=== PATIENT | male | born 1930 | race Caucasian/White ===

== ENCOUNTER → 2016-10-24 | Outpatient (CLI) | payer OTHER, MEDICARE ==
[~2016-10-24] MED LIST: ASPI81TA28 PO; CIPR-255 PO; METO100T7 PO; RIVA1.5T PO; ROSU40TA PO; TAMS0.4C38 PO; VSC/5 PO
[2016-10-24 12:24] LABS: HEMATOCRIT 41.6 % (42-52); MEAN CELL VOLUME 91.8 fL (80-100); MEAN CORPUSCULAR HEMOGLOBIN 30.2 pg (25-34); MEAN CORPUSCULAR HGB CONC 32.9 g/dl (32-36); MEAN PLATELET VOLUME 9.8 fL (7.4-10.4); PLATELET COUNT 176 K/uL (130-400); RED BLOOD COUNT 4.53 M/uL (4.7-6.1); WHITE BLOOD COUNT 7.16 K/uL (4.8-10.8)
[2016-10-24 13:03] LABS: BLOOD UREA NITROGEN 22 mg/dl (7-18); CALCIUM 8.6 mg/dl (8.5-10.1); CARBON DIOXIDE 31 mmol/L (21-32); CHLORIDE 109 mmol/L (98-107); GLUCOSE 81 mg/dl (70-99); POTASSIUM 4.3 mmol/L (3.5-5.1); SODIUM 143 mmol/L (136-145)
== END | disposition home or self-care (01) ==
LOC: C.LAB1850 09:52
PROVIDERS: ATTEND Internal Medicine
DX: I48.91 Unspecified atrial fibrillation (principal); E03.9 Hypothyroidism, unspecified

== ENCOUNTER 2016-11-14 08:35 | Day surgery (SDC) | payer OTHER, MEDICARE ==
[2016-11-07 12:02] VITALS: Ht 177.8 cm; Wt 76.1 kg
--- NOTE | 2016-11-07 12:50 | PAT Medication Instructions ---
Service Date Nov 07, 2016. Current Home Medication List Aspirin (Aspirin Ec), 81 MG PO QPM Metoprolol Succinate (Toprol Xl), 100 MG PO HS Rivaroxaban (Xarelto), 15 MG PO DAILYBD Rosuvastatin Calcium (Crestor), 40 MG PO HS Solifenacin (Vesicare), 5 MG PO HS Tamsulosin Hcl (Flomax), 0.4 MG PO HS Medication Instructions For Your Scheduled Surgery - Hold the following medications 5 days prior to surgery per surgeon's instructions: Aspirin (Aspirin Ec), 81 MG PO QPM - Hold the following medications 2 days prior to surgery per surgeon's instructions: Rivaroxaban (Xarelto), 15 MG PO DAILYBD - Take the following medications as scheduled the night before surgery: Metoprolol Succinate (Toprol Xl), 100 MG PO HS Rosuvastatin Calcium (Crestor), 40 MG PO HS Solifenacin (Vesicare), 5 MG PO HS Tamsulosin Hcl (Flomax), 0.4 MG PO HS Nothing to eat or drink after midnight the night before the surgery If you have any questions please call us at [phone] or [phone] or [phone]
[2016-11-07 13:46] LABS: BASO % 0.3 %; BASO ABS # 0.02 K/uL (0-0.2); COMPLETE YES; EOS % 5.8 %; HEMATOCRIT 39.7 % (42-52); IG% 0.1 %; LYMPH % 25.5 %; LYMPH ABS # 2.01 K/uL (1.2-3.4); MEAN CELL VOLUME 89.8 fL (80-100); MEAN CORPUSCULAR HEMOGLOBIN 29.9 pg (25-34); MEAN CORPUSCULAR HGB CONC 33.2 g/dl (32-36); MEAN PLATELET VOLUME 9.3 fL (7.4-10.4); MONO % 9.3 %; PLATELET COUNT 152 K/uL (130-400); RED BLOOD COUNT 4.42 M/uL (4.7-6.1); WHITE BLOOD COUNT 7.87 K/uL (4.8-10.8)
[2016-11-07 14:17] LABS: URINE APPEARANCE CLEAR (CLEAR); URINE BILIRUBIN NEG (NEG); URINE COLOR YELLOW; URINE NITRITE NEG (NEG); URINE SPECIFIC GRAVITY 1.013 (1.000-1.030); UROBILINOGEN NEG (NEG)
[2016-11-07 14:24] LABS: MANUAL MICROSCOPIC REQUIRED? NO; REVIEW REQ? NO
[2016-11-07 14:27] LABS: BUN/CREATININE RATIO 14.6 (10-20); CALCIUM 8.5 mg/dl (8.5-10.1); CREATININE 1.2 mg/dl (0.60-1.40); POTASSIUM 4.4 mmol/L (3.5-5.1)
[~2016-11-14] VITALS: Ht 177.8 cm; Wt 76.1 kg
[~2016-11-14 08:35] MED LIST changes: -CIPR-255 PO; +CIPROFLOXACIN / D5W 400 MG IV SCH; +LACTATED RINGER'S 1000ML 1,000 ML IV SCH
[2016-11-14] MEDS ORDERED: LIDOCAINE HCL 2% 2 ML VIAL (20MG/ML) ONE (08:40)
[2016-11-14] MEDS ORDERED: PROPOFOL IV EMULSION 10 MG/ML 20 ML VIAL IV ONE (08:40)
[2016-11-14] MEDS ORDERED: ONDANSETRON INJ 2 MG/ML 2 ML VIAL ONE (08:40)
[2016-11-14] MEDS ORDERED: MIDAZOLAM HCL 1 MG/ML 2ML VIAL ONE (08:41)
[2016-11-14] MEDS ORDERED: FENTANYL CITRATE INJ 50 MCG/1 ML 2 ML VIAL ONE (08:41)
--- NOTE | 2016-11-14 08:54 | History & Physical Bridge Note ---
H&P Re-Evaluation Bridge Note: I have examined the patient, reviewed the History & Physical and in the interval since the performance of the History & Physical I have noted the following changes of clinical significance: No changes noted
[2016-11-14] MEDS ORDERED: CIPR-255 PO (08:56)
--- NOTE | 2016-11-14 08:56 | Discharge Instructions ---
Discharge Instructions Date of Service Nov 14, 2016. Admission Reason for Admission: Benign Prostatic Hypertrophy Discharge Discharge Diagnosis / Problem: BPH Discharge Goals Goal(s): Decrease discomfort, Improve function, Increase independence, Improve disease control, Prevent Disease Progression Activity Recommendations Activity Limitations: resume your previous activity Lifting Limitations: none Exercise/Sports Limitations: none May Resume Sexual Activity: when tolerated Shower/Bathe: no limitations Driving or Machine Use: resume 1 day after discharge . Instructions / Follow-Up Instructions / Follow-Up You may have some burning with urination as well as urinary frequency, urgency, and blood for the next 1-4 weeks. This is a normal part of recovery from this procedure. If your burning is problematic, please use AZO (available over the counter at most pharmacies) Discharge Diet Recommended Diet: Regular Diet Procedures Procedures Performed: cystoscopy; urolift Pending Studies Studies pending at discharge: no Medical Emergencies . Who to Call and When: Medical Emergencies: If at any time you feel your situation is an emergency, please call 911 immediately. . Non-Emergent Contact Non-Emergency issues call your: Urologist Call Non-Emergent contact if: you have a fever, temperature is above 101.5, your pain is not controlled, your pain is worsening . . "Provider Documentation" section prepared by Jj Stahl. . VTE Core Measure Inpt VTE Proph given/why not?: Treatment not indicated
[2016-11-14 09:02] VITALS: BP 156/93; PULSE 73; TEMP 36.5; O2SAT 100
[2016-11-14] MEDS ORDERED: EpHEDrine SULFATE INJ 50 MG/ML AMP IV PRN (09:15)
[2016-11-14] MEDS ORDERED: FENTANYL CITRATE INJ 50 MCG/1 ML 2 ML VIAL IV PRN (09:15)
[2016-11-14] MEDS ORDERED: ONDANSETRON INJ 2 MG/ML 2 ML VIAL IV PRN (09:15)
[2016-11-14] MEDS ORDERED: ATROPINE SULFATE 0.1 MG/ML 5ML SYR IV PRN (09:15)
--- NOTE | 2016-11-14 09:47 | [facility] Post Operative Brief Note ---
Immediate Operative Summary Operative Date Nov 14, 2016. Pre-Operative Diagnosis Benign Hyperstatic Hyperplasia Post-Operative Diagnosis Benign Hyperstatic Hyperplasia Procedure(s) Performed cystoscopy with urolift Surgeon Dr. Nupur Teixeira Brooch And Bracelet Maker Surgeon(s) none Estimated Blood Loss 0mL Findings Lateral lobe hypertrophy. Heavily trabeculated bladder. Specimens none per surgeon Drains none Anesthesia MAC Complication(s) None Disposition Recovery Room / PACU (stable)
[2016-11-14] MEDS ORDERED: ACETAMINOPHEN 325 MG TAB PO PRN (10:00)
[2016-11-14] MEDS ORDERED: HYDROCODONE/ACETAMOPHEN 5/325MG TAB PO PRN (10:00)
--- NOTE | 2016-11-14 10:12 | OPERATIVE REPORT ---
DATE OF OPERATION: 11/14/2016 PREOPERATIVE DIAGNOSIS: Benign prostatic hypertrophy. POSTOPERATIVE DIAGNOSIS: Benign prostatic hypertrophy. PROCEDURE PERFORMED: Cystoscopy and Urolift prostatic urethral lift. ANESTHESIA: Sedation. ESTIMATED BLOOD LOSS: 0. URINE OUTPUT: Not recorded. SPECIMENS: There were no specimens. DRAINS: There were no drains. COMPLICATIONS: There were no complications. DESCRIPTION OF THE PROCEDURE: Maximo Humphrey was identified in the preoperative holding area. Appropriate informed consents were reviewed and completed and the patient was transported to the operating suite. Upon arrival, he received appropriate preoperative antibiotics in the form of ciprofloxacin. Adequate general anesthesia was achieved and the patient was placed in dorsal lithotomy position where he was sterilely prepped and draped in standard fashion. I began the case by passing a cystoscope per urethra. Inspection revealed no evidence of stricture disease. His prostate was noted to have lateral lobe hypertrophy and the estimated at around 50-60 grams total tissue. Inspection of the bladder revealed a very heavily trabeculated bladder without mucosal disease. Following my inspection, I exchanged the visual obturator for the device. The first device was placed in the patient's left hand side approximately 2 cm from the bladder neck in the mid prostate. This was placed just above the midline in regard to anterior-posterior differentiation. Device was placed without incident. I placed a second device exact way across from it on the patient's right hand side in the same location. A third device was placed adjacent to the verumontanum on the left hand side in the same anterior- posterior line. A fourth device was placed in a mirror image position to this on the patient's right hand side, adjacent to the verumontanum. There was an excellent result with excellent opening of the prostatic urethra with the clear visualization of the bladder from the veru. There was no active bleeding. The patient was left with a semi-full bladder and taken to the PACU in stable condition. I attest to the content of the Intraoperative Record and any orders documented therein. Any exceptions are noted below. RAFAELD
--- NOTE | 2016-11-14 10:17 | Anesthesiology Progress Note ---
Anesthesia Post Op Note Date & Time Nov 14, 2016 at 10:18 Vital Signs Pain Intensity: 0 Vital Signs Past 12 Hours Date Time Temp Pulse Resp B/P (MAP) Pulse Ox O2 Delivery O2 Flow Rate FiO2 11/14/16 10:05 61 16 129/76 100 Mask 10 11/14/16 09:55 58 16 123/71 100 Mask 10 11/14/16 09:47 36.3 63 16 115/69 100 Mask 10 11/14/16 09:02 36.5 73 18 156/93 (114) 100 Room Air Notes Mental Status: alert / awake / arousable, participated in evaluation Pt Amnestic to Procedure: Yes Nausea / Vomiting: adequately controlled Pain: adequately controlled Airway Patency, RR, SpO2: stable & adequate BP & HR: stable & adequate Hydration State: stable & adequate Anesthetic Complications: no major complications apparent
[2016-11-14 10:20] VITALS: BP 127/81; PULSE 54; TEMP 36.4; O2SAT 96
[2016-11-14 10:50] VITALS: BP 137/77; PULSE 53; TEMP 36.2; O2SAT 97
== END 2016-11-14 10:55 | disposition home or self-care (01) ==
LOC: C.ACU 08:35
PROVIDERS: ATTEND Urology
DX: N40.1 Benign prostatic hyperplasia with lower urinary tract symptoms (principal); N13.8 Other obstructive and reflux uropathy; D09.0 Carcinoma in situ of bladder; I10 Essential (primary) hypertension; I48.91 Unspecified atrial fibrillation; I25.10 Atherosclerotic heart disease of native coronary artery without angina pectoris; E78.5 Hyperlipidemia, unspecified; E03.9 Hypothyroidism, unspecified; Z95.1 Presence of aortocoronary bypass graft; Z90.89 Acquired absence of other organs; Z90.49 Acquired absence of other specified parts of digestive tract; Z87.891 Personal history of nicotine dependence; Z87.438 Personal history of other diseases of male genital organs; Z79.82 Long term (current) use of aspirin; Z79.899 Other long term (current) drug therapy; Z68.25 Body mass index [BMI] 25.0-25.9, adult; Z82.49 Family history of ischemic heart disease and other diseases of the circulatory system; Z83.3 Family history of diabetes mellitus

== ENCOUNTER → 2017-03-15 | Outpatient (CLI) | payer OTHER, MEDICARE ==
[~2017-03-15] MED LIST changes: +CIPR-255 PO; -CIPROFLOXACIN / D5W 400 MG IV SCH; -LACTATED RINGER'S 1000ML 1,000 ML IV SCH
== END | disposition home or self-care (01) ==
LOC: C.LAB1850 08:59
PROVIDERS: ATTEND Nurse Practitioner Adult Health
DX: N39.0 Urinary tract infection, site not specified (principal)

== ENCOUNTER → 2017-06-07 | Outpatient (CLI) | payer OTHER, MEDICARE ==
[~2017-06-07] MED LIST changes: +CPR/500 PO; +LISI-461 PO; +PHEN95TA14 PO
== END | disposition home or self-care (01) ==
LOC: C.LAB 17:16
PROVIDERS: ATTEND Urology
DX: N39.0 Urinary tract infection, site not specified (principal); R35.0 Frequency of micturition; R35.1 Nocturia

== ENCOUNTER 2017-06-25 09:25 | Day surgery (SDC) | payer OTHER, MEDICARE ==
[2017-06-11 13:43] VITALS: BMI 23.0
--- NOTE | 2017-06-11 14:06 | PAT Medication Instructions ---
Service Date Jun 11, 2017. Current Home Medication List Aspirin (Aspirin Ec), 81 MG PO Q2D Metoprolol Succinate (Toprol Xl), 100 MG PO HS Rivaroxaban (Xarelto), 15 MG PO HS Rosuvastatin Calcium (Crestor), 40 MG PO HS Medication Instructions For Your Scheduled Surgery Aspirin (Aspirin Ec), 81 MG PO Q2D (okay to continue as directed per surgeon) - Check with surgeon and silk screen processor for instructions: Rivaroxaban (Xarelto), 15 MG PO HS - Take the following medications as scheduled the night before surgery: Metoprolol Succinate (Toprol Xl), 100 MG PO HS Rosuvastatin Calcium (Crestor), 40 MG PO HS If you have any questions please call us at [phone] or [phone] or [phone]
--- NOTE | 2017-06-11 14:32 | DIAGNOSTIC IMAGING REPORT ---
CHEST 2 VIEWS ROUTINE CLINICAL HISTORY: PAT preoperative evaluation COMPARISON STUDY: 04/06/2016 FINDINGS: Moderate chronic fibrotic change throughout both hemithoraces. Mild stable cardia megaly. Prior median sternotomy. Diaphragms smooth. IMPRESSION: Chronic fibrotic change. No acute process. The above report was generated using voice recognition software. It may contain grammatical, syntax or spelling errors. Electronically signed by: Dony Child M.D. 06/11/2017 2:30 PM Dictated Date/Time: 06/11/2017 2:30 PM
[2017-06-11 15:05] LABS: BASO % 0.1 %; BASO ABS # 0.01 K/uL (0-0.2); EOS % 3.6 %; EOS ABS # 0.29 K/uL (0-0.5); HEMATOCRIT 39.6 % (42-52); HEMOGLOBIN 13.4 g/dL (14.0-18.0); IG# 0.02 K/uL (0.00-0.02); LYMPH % 18.5 %; LYMPH ABS # 1.48 K/uL (1.2-3.4); MEAN CELL VOLUME 91.9 fL (80-100); MEAN CORPUSCULAR HEMOGLOBIN 31.1 pg (25-34); MEAN CORPUSCULAR HGB CONC 33.8 g/dl (32-36); MEAN PLATELET VOLUME 10.1 fL (7.4-10.4); MONO % 7.2 %; MONO ABS # 0.58 K/uL (0.11-0.59); NEUT % 70.4 %; NEUT ABS # 5.64 K/uL (1.4-6.5); PLATELET COUNT 147 K/uL (130-400); RED CELL DISTRIBUTION WIDTH CV 15.2 % (11.5-14.5); RED CELL DISTRIBUTION WIDTH SD 51.8 fL (36.4-46.3); WHITE BLOOD COUNT 8.02 K/uL (4.8-10.8)
[2017-06-11 15:15] LABS: CALCIUM 8.7 mg/dl (8.5-10.1); CREATININE 1.28 mg/dl (0.60-1.40); POTASSIUM 4.2 mmol/L (3.5-5.1)
[~2017-06-25] VITALS: Ht 177.8 cm; Wt 74.9 kg
[~2017-06-25 09:25] MED LIST changes: +BELLADONNA/OPIUM SUPP 60 MG SUPP PR ONE; -CIPR-255 PO; +CIPROFLOXACIN / D5W 400 MG IV SCH; -CPR/500 PO; +LACTATED RINGER'S 1000ML 1,000 ML IV SCH; -LISI-461 PO; -PHEN95TA14 PO; -TAMS0.4C38 PO; -VSC/5 PO
[2017-06-25] MEDS ORDERED: EpHEDrine SULFATE INJ 50 MG/ML AMP IV PRN (09:45)
[2017-06-25] MEDS ORDERED: ATROPINE SULFATE 0.1 MG/ML 5ML SYR IV PRN (09:45)
[2017-06-25] MEDS ORDERED: LABETALOL HCL IV 5 MG/ML 20ML IV PRN (09:45)
[2017-06-25] MEDS ORDERED: FENTANYL CITRATE INJ 50 MCG/1 ML 2 ML VIAL IV PRN (09:45)
[2017-06-25] MEDS ORDERED: FLUMAZENIL 0.1 MG/1 ML 10 ML VIAL IV PRN (09:45)
[2017-06-25] MEDS ORDERED: PHENYLEPHRINE 100MCG/ML 5ML SYR IV PRN (09:45)
[2017-06-25] MEDS ORDERED: NALOXONE HCL 0.4 MG/1 ML VIAL/CARP IV PRN (09:45)
[2017-06-25] MEDS ORDERED: HYDROmorphone INJ 2 MG/ML SYR/VIAL IV PRN (09:45)
[2017-06-25] MEDS ORDERED: MEPERIDINE HCL 25 MG/ML CARP IV PRN (09:45)
[2017-06-25] MEDS ORDERED: ONDANSETRON INJ 2 MG/ML 2 ML VIAL IV PRN (09:45)
[2017-06-25 09:54] VITALS: BP 163/72; PULSE 81; TEMP 36.4; O2SAT 96; Ht 177.8 cm; Wt 74.9 kg
[2017-06-25] MEDS ORDERED: FENTANYL CITRATE INJ 50 MCG/1 ML 2 ML VIAL ONE (10:23)
[2017-06-25] MEDS ORDERED: CIPR-255 PO (10:46)
[2017-06-25] MEDS ORDERED: PHEN95TA14 PO (10:46)
--- NOTE | 2017-06-25 10:47 | Discharge Instructions ---
Discharge Instructions Date of Service Jun 25, 2017. Admission Reason for Admission: Bladder Cancer In Situ Discharge Discharge Diagnosis / Problem: bladder ca Discharge Goals Goal(s): Decrease discomfort, Improve function, Increase independence, Improve disease control Activity Recommendations Activity Limitations: resume your previous activity Lifting Limitations: none Exercise/Sports Limitations: none May Resume Sexual Activity: when tolerated Shower/Bathe: no limitations Driving or Machine Use: resume 1 day after discharge . Instructions / Follow-Up Instructions / Follow-Up Please keep your previously scheduled follow up appointment Current Hospital Diet Patient's current hospital diet: Discharge Diet Recommended Diet: Regular Diet Pending Studies Studies pending at discharge: no Laboratory Results Lipid Panel Test 03/27/17 09:45 Range/Units Triglycerides Level 64 0-150 mg/dl Cholesterol Level 98 0-200 mg/dl HDL Cholesterol 38 mg/dl Cholesterol/HDL Ratio 2.6 LDL Cholesterol, Calculated 47 mg/dl Medical Emergencies . Who to Call and When: Medical Emergencies: If at any time you feel your situation is an emergency, please call 911 immediately. . Non-Emergent Contact Non-Emergency issues call your: Urologist Call Non-Emergent contact if: you have a fever, temperature is above 101.5, your pain is not controlled, your pain is worsening . . "Provider Documentation" section prepared by Jj Stahl. . VTE Core Measure Inpt VTE Proph given/why not?: Other Anticoagulation (xarelto)
[2017-06-25] MEDS ORDERED: PROPOFOL IV EMULSION 10 MG/ML 20 ML VIAL IV ONE (11:15)
[2017-06-25] MEDS ORDERED: ONDANSETRON INJ 2 MG/ML 2 ML VIAL ONE (11:15)
[2017-06-25] MEDS ORDERED: LIDOCAINE HCL 2% 2 ML VIAL (20MG/ML) ONE (11:15)
[2017-06-25] MEDS ORDERED: DEXAMETHASONE SOD INJ 4 MG/ML VIAL ONE (11:15)
[2017-06-25] MEDS ORDERED: SODIUM CHLORIDE 0.9% 1000ML 1,000 ML IV SCH (11:28)
--- NOTE | 2017-06-25 11:28 | [facility] Operative Report ---
Operative Report Operative Date Jun 25, 2017. Pre-Operative Diagnosis Bladder Cancer Post-Operative Diagnosis Bladder Cancer Procedure(s) Performed cystoscopy, bladdery biopsy (left lateral wall), fulguration Surgeon Dr. Nupur Teixeira Thread Laster Surgeon(s) none Estimated Blood Loss 0 ml Findings Appearance of the bladder was notably improved from the time of our in office cystoscopy. There was some persistent erythema on the left lateral wall. Specimens A. left lateral bladder wall biopsies (permanent) Drains none Anesthesia gen Complication(s) None Disposition Recovery Room / PACU (stable) Indications Hx of CiS Description of Procedure The patient was identified in the preoperative holding area, appropriate informed consent reviewed and completed and the was transported to the operating suite. Upon arrival he received ciprofloxacin and general anesthesia. Following sterile prep and drape I passed a 24 [place] resectoscope with 30 lens and visual obturator. Full inspection of the bladder was carried out utilizing both a 30 and 70 lens. Of note, previously an erythema that was identified on in office cystoscopy has largely improved. A small area on the left lateral wall the continues to have erythema. There were no papillary tumors or other concerning areas for recurrent cancer. I documented appearance of the bladder with photographs before proceeding. I did perform a biopsy times two of the left lateral wall where the continued erythema was. I fulgurated this area completely. Hemostasis was excellent. The case essentially concluded and the patient extubated and taken to the PACU in stable condition. I attest to the content of the Intraoperative Record and any orders documented therein. Any exceptions are noted below.
[2017-06-25] MEDS ORDERED: HYDROCODONE/ACETAMOPHEN 5/325MG TAB PO PRN (11:30)
[2017-06-25] MEDS ORDERED: ACETAMINOPHEN 325 MG TAB PO PRN (11:30)
--- NOTE | 2017-06-25 12:16 | Anesthesiology Progress Note ---
Anesthesia Post Op Note Date & Time Jun 25, 2017 at 12:16 Vital Signs Pain Intensity: 0 Vital Signs Past 12 Hours Date Time Temp Pulse Resp B/P (MAP) Pulse Ox O2 Delivery O2 Flow Rate FiO2 06/25/17 12:05 36.2 50 16 129/80 95 Room Air 06/25/17 11:55 49 15 133/74 100 Oxymask 10 06/25/17 11:45 45 20 135/64 100 Oxymask 10 06/25/17 11:36 36.1 52 16 108/66 100 Oxymask 10 06/25/17 09:54 36.4 81 18 163/72 (102) 96 Room Air Notes Mental Status: alert / awake / arousable, participated in evaluation Pt Amnestic to Procedure: Yes Nausea / Vomiting: adequately controlled Pain: adequately controlled Airway Patency, RR, SpO2: stable & adequate BP & HR: stable & adequate Hydration State: stable & adequate Anesthetic Complications: no major complications apparent
[2017-06-25 12:30] VITALS: BP 141/73; PULSE 59; TEMP 36.4; O2SAT 99
[2017-06-25 13:00] VITALS: BP 162/92; PULSE 67; TEMP 36.4; O2SAT 99
== END 2017-06-25 13:40 | disposition home or self-care (01) ==
LOC: C.ACU 09:25
PROVIDERS: ATTEND Urology
DX: D09.0 Carcinoma in situ of bladder (principal); N40.1 Benign prostatic hyperplasia with lower urinary tract symptoms; N13.8 Other obstructive and reflux uropathy; I25.10 Atherosclerotic heart disease of native coronary artery without angina pectoris; E78.5 Hyperlipidemia, unspecified; K21.9 Gastro-esophageal reflux disease without esophagitis; I10 Essential (primary) hypertension; E03.9 Hypothyroidism, unspecified; R33.9 Retention of urine, unspecified; Z87.891 Personal history of nicotine dependence; Z90.49 Acquired absence of other specified parts of digestive tract; Z79.82 Long term (current) use of aspirin; Z87.440 Personal history of urinary (tract) infections; Z95.1 Presence of aortocoronary bypass graft; Z82.5 Family history of asthma and other chronic lower respiratory diseases; Z83.3 Family history of diabetes mellitus; Z82.49 Family history of ischemic heart disease and other diseases of the circulatory system

== ENCOUNTER 2017-06-28 00:33 | Emergency (ER) | payer OTHER, MEDICARE ==
[~2017-06-28] VITALS: Ht 177.8 cm; Wt 74.7 kg
[~2017-06-28 00:33] MED LIST changes: -BELLADONNA/OPIUM SUPP 60 MG SUPP PR ONE; +CIPR-255 PO; -CIPROFLOXACIN / D5W 400 MG IV SCH; -LACTATED RINGER'S 1000ML 1,000 ML IV SCH; +PHEN95TA14 PO
[2017-06-28 00:38] VITALS: TEMP 36.4; Ht 177.8 cm; Wt 74.7 kg
[2017-06-28] MEDS ORDERED: CPR/500 PO (01:19)
[2017-06-28 01:23] LABS: BASO % 0.2 %; BASO ABS # 0.02 K/uL (0-0.2); EOS % 3.3 %; EOS ABS # 0.29 K/uL (0-0.5); HEMATOCRIT 40.8 % (42-52); HEMOGLOBIN 13.9 g/dL (14.0-18.0); IG# 0.02 K/uL (0.00-0.02); LYMPH % 25.7 %; LYMPH ABS # 2.25 K/uL (1.2-3.4); MEAN CELL VOLUME 91.7 fL (80-100); MEAN CORPUSCULAR HEMOGLOBIN 31.2 pg (25-34); MEAN CORPUSCULAR HGB CONC 34.1 g/dl (32-36); MEAN PLATELET VOLUME 10.1 fL (7.4-10.4); MONO % 10.7 %; MONO ABS # 0.94 K/uL (0.11-0.59); NEUT % 59.9 %; NEUT ABS # 5.23 K/uL (1.4-6.5); PLATELET COUNT 149 K/uL (130-400); RED CELL DISTRIBUTION WIDTH CV 15.3 % (11.5-14.5); RED CELL DISTRIBUTION WIDTH SD 51.7 fL (36.4-46.3); WHITE BLOOD COUNT 8.75 K/uL (4.8-10.8)
[2017-06-28 01:35] LABS: INR 1.1 (0.9-1.1); PTT PATIENT 30.3 SECONDS (21.0-31.0)
[2017-06-28 01:52] LABS: ALBUMIN 3.5 gm/dl (3.4-5.0); CALCIUM 8.9 mg/dl (8.5-10.1); CREATININE 1.31 mg/dl (0.60-1.40)
[2017-06-28 01:55] LABS: TOTAL PROTEIN 7.3 gm/dl (6.4-8.2)
[2017-06-28 02:31] VITALS: BP 182/98; PULSE 66; O2SAT 97
--- NOTE | 2017-06-28 02:45 | EMERGENCY ROOM VISIT NOTE ---
History First contact with patient: 00:42 Chief Complaint: HEMATURIA Stated Complaint: BLOOD IN URINE Nursing Triage Summary: pt had bladder caurterized by Dr Teixeira on Sunday today at 5pm noticed blood in urine, passing blood clots increased frequency no pain History of Present Illness The patient is a 86 year old male who presents to the Emergency Room with complaints of hematuria for the past several hours who started his Xarelto again today. Patient had bladder biopsy on Sunday by Dr. Teixeira. He follows up this Sunday for the results. Patient does smoke. Patient complains of painless hematuria. Patient denies chest pain, dyspnea fever, chills, back pain , abdominal pain, penile pain, testicular pain. She is on Xarelto for A. fib. Review of Systems See HPI for pertinent positives & negatives. A total of 10 systems reviewed and were otherwise negative. Past Medical/Surgical History Medical Problems: (1) Atrial fibrillation (2) Bladder cancer Family History No pertinent family history Social History Smoking Status: Current Every Day Smoker Alcohol Use: occasionally Drug Use: none Marital Status: Housing Status: lives with family Occupation Status: retired Current/Historical Medications Scheduled Aspirin (Aspirin Ec), 81 MG PO Q2D Ciprofloxacin (Ciprofloxacin HCl), 500 MG PO BID Metoprolol Succinate (Toprol Xl), 100 MG PO HS Rivaroxaban (Xarelto), 15 MG PO HS Rosuvastatin Calcium (Crestor), 40 MG PO HS Physical Exam Vital Signs Date Time Temp Pulse Resp B/P (MAP) Pulse Ox O2 Delivery O2 Flow Rate FiO2 06/28/17 02:05 74 18 175/95 98 Room Air 06/28/17 00:38 36.4 118 20 197/117 100 Room Air Physical Exam VITALS: Vitals are noted on the nurse's note and reviewed by myself. Vital signs hypertensive GENERAL: Pleasant male anxious-appearing, in no acute distress, nondiaphoretic, well-developed well-nourished. SKIN: Capillary reflex less than 2 seconds. HEENT: Normocephalic. PERRLA. EOMI. Nares patent. Mucous membranes moist. Neck is supple without nuchal rigidity. HEART: Regular rate and rhythm LUNGS: Clear to auscultation bilaterally without wheezes, rales or rhonchi. No retractions or accessory muscle use. ABDOMEN: Positive bowel sounds x 4. Normal tympanic percussion. Soft, nontender, without masses or organomegaly. Mandujano sign negative. No guarding or rebound tenderness. MUSCULOSKELETAL: No gross musculoskeletal defects. No pedal edema. No calf tenderness. NEURO: Patient was alert and oriented to person place and time. Normal sensation to light and sharp touch. No focal neurological deficits. Medical Decision & Procedures Laboratory Results 06/28/17 01:05 Red Blood Count 4.45, Mean Corpuscular Volume 91.7, Mean Corpuscular Hemoglobin 31.2, Mean Corpuscular Hemoglobin Concent 34.1, Mean Platelet Volume 10.1, Neutrophils (%) (Auto) 59.9, Lymphocytes (%) (Auto) 25.7, Monocytes (%) (Auto) 10.7, Eosinophils (%) (Auto) 3.3, Basophils (%) (Auto) 0.2, Neutrophils # (Auto ) 5.23, Lymphocytes # (Auto) 2.25, Monocytes # (Auto) 0.94, Eosinophils # (Auto ) 0.29, Basophils # (Auto) 0.02 06/28/17 01:05 Test 06/28/17 00:45 06/28/17 01:05 Urine Color RED Urine Appearance CLOUDY (CLEAR) Urine pH (4.5-7.5) Urine Specific Anthony 1.005 (1.000-1.030) Urine Protein POS (NEG) Urine Glucose (UA) (NEG) Urine Ketones (NEG) Urine Occult Blood (NEG) Urine Nitrite (NEG) Urine Bilirubin (NEG) Urine Urobilinogen (NEG) Urine Leukocyte Esterase (NEG) Urine RBC >30 /hpf (0-4) Urine WBC 1-5 /hpf (0-5) Urine Epithelial Cells 0-5 /lpf (0-5) Urine Bacteria NEG (NEG) White Blood Count 8.75 K/uL (4.8-10.8) Red Blood Count 4.45 M/uL (4.7-6.1) Hemoglobin 13.9 g/dL (14.0-18.0) Hematocrit 40.8 % (42-52) Mean Corpuscular Volume 91.7 fL (80-100) Mean Corpuscular Hemoglobin 31.2 pg (25-34) Mean Corpuscular Hemoglobin Concent 34.1 g/dl (32-36) Platelet Count 149 K/uL (130-400) Mean Platelet Volume 10.1 fL (7.4-10.4) Neutrophils (%) (Auto) 59.9 % Lymphocytes (%) (Auto) 25.7 % Monocytes (%) (Auto) 10.7 % Eosinophils (%) (Auto) 3.3 % Basophils (%) (Auto) 0.2 % Neutrophils # (Auto) 5.23 K/uL (1.4-6.5) Lymphocytes # (Auto) 2.25 K/uL (1.2-3.4) Monocytes # (Auto) 0.94 K/uL (0.11-0.59) Eosinophils # (Auto) 0.29 K/uL (0-0.5) Basophils # (Auto) 0.02 K/uL (0-0.2) RDW Standard Deviation 51.7 fL (36.4-46.3) RDW Coefficient of Variation 15.3 % (11.5-14.5) Immature Granulocyte % (Auto) 0.2 % Immature Granulocyte # (Auto) 0.02 K/uL (0.00-0.02) Prothrombin Time 11.9 SECONDS (9.0-12.0) Prothromb Time International Ratio 1.1 (0.9-1.1) Activated Partial Thromboplast Time 30.3 SECONDS (21.0-31.0) Partial Thromboplastin Ratio 1.2 Anion Gap 7.0 mmol/L (3-11) Est Creatinine Clear Calc Drug Dose 41.8 ml/min Estimated GFR () 56.7 Estimated GFR (Non- 49.0 BUN/Creatinine Ratio 18.7 (10-20) Calcium Level 8.9 mg/dl (8.5-10.1) Total Bilirubin 0.8 mg/dl (0.2-1) Direct Bilirubin 0.2 mg/dl (0-0.2) Aspartate Amino Transf (AST/SGOT) 28 U/L (15-37) Alanine Aminotransferase (ALT/SGPT) 32 U/L (12-78) Alkaline Phosphatase 82 U/L (45-117) Total Protein 7.3 gm/dl (6.4-8.2) Albumin 3.5 gm/dl (3.4-5.0) ED Course Prior records reviewed and summarized as above. Triage Nursing notes reviewed. Additional history obtained from . The patient's history was concerning for hematuria. Differential diagnosis: Etiologies such as postsurgical complication, bleeding biopsy site, UTI, bladder polyp, bladder cancer, coagulopathy, as well as others were entertained.. Physical examination: The physical examination was consistent with hematuria ER treatment provided: Patient was observed On reassessment the patient felt better. Diagnostics interpreted by me: The labs revealed mild anemia. 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 Thickening of the posterior lateral left wall measured 13 mm concerning for neoplasm. This is read by radiology. This appears to be hematuria. Patient was able to urinate without difficulties. There is no large clots. Patient had no obvious signs of debris on ultrasound. He is advised to hold his Xarelto for 2 days and to follow-up urology in a day or 2 or here in the ER sooner for difficulty urinating, fevers , pain, worsening signs or symptoms or as needed. Patient no signs of urinary obstruction or UTI. I believe his hematuria is most likely from the biopsy site and him restarting his Xarelto. Patient was agreeable to treatment plan and and related out of the ER without difficulties. By the evaluation outlined above emergent etiologies such as UTI, obstruction, as well as others were deemed relatively unlikely. The pt informed about the findings as listed above. All questions were answered and pleased with the treatment. Return instructions were outlined and the patient was discharged in stable condition. Referral: The patient was referred back to urology for follow-up in 2 to 3 days for a recheck of the current condition. Case reviewed by attending Medical Decision as above Medication Reconcilliation Current Medication List: was personally reviewed by me Blood Pressure Screening Patient's blood pressure: Elevated blood pressure Blood pressure disposition: Elevated BP felt to be situational, Referred to PCP Impression Primary Impression: Hematuria Additional Impression: Anemia Departure Information Dispostion Home / Self-Care Condition GOOD Referrals Pro,Berny Che M.D. (PCP) Forms WORK / SCHOOL INSTRUCTIONS, HOME CARE DOCUMENTATION FORM, IMPORTANT VISIT INFORMATION Patient Instructions Hematuria, My [employer] Additional Instructions Stop your Xarelto for 2 days. You will continue to have blood in your urine. If you develop pain and pressure in your suprapubic region and are unable to urinate then call the urologist or come to the ER for further evaluation and treatment. Return to ER sooner for fevers, pain, weakness, lightheadedness, chest pains, difficulty urinating, worsening signs or symptoms or as needed. Problem Qualifiers Primary Impression: Hematuria Hematuria type: unspecified type Qualified Codes: R31.9 - Hematuria, unspecified
--- NOTE | 2017-06-28 06:00 | EMERGENCY ROOM VISIT NOTE ---
ED Visit Note First contact with patient: 00:42 I have personally evaluated and examined this patient. I agree with assessment and plan of Lissette Estrella PA-C. Patient with some hematuria without evidence retention currently and comfortable without distress. Follow up with Urologist.
--- NOTE | 2017-06-28 06:44 | DIAGNOSTIC IMAGING REPORT ---
BLADDER ULTRASOUND CLINICAL HISTORY: Hematuria. Recent bladder biopsy. COMPARISON STUDY: CT of the abdomen and pelvis April 06, 2016. TECHNIQUE: Sonography of the bladder was performed. 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 Bladder wall irregularity is noted. Both ureteral jets were identified. There was asymmetric thickening of the left posterior lateral wall the bladder which measured up to 1.3 cm in thickness. This was not mobile and demonstrated no color flow. No mobile blood clot was identified. IMPRESSION: 1. No intraluminal mobile blood clot within the bladder. 2. Asymmetric thickening of the left posterolateral wall of the bladder. This may be postprocedural could reflect adherent blood clot or edema. However, tumor could appear similar. 3. 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 Electronically signed by: Humberto Malcolm M.D. 06/28/2017 6:43 AM Dictated Date/Time: 06/28/2017 6:37 AM
== END 2017-06-28 02:45 | disposition home or self-care (01) ==
LOC: C.EDB 00:36 → C.EDA 02:45
DX: R31.9 Hematuria, unspecified (principal); D64.9 Anemia, unspecified; F17.200 Nicotine dependence, unspecified, uncomplicated; I48.91 Unspecified atrial fibrillation; C67.9 Malignant neoplasm of bladder, unspecified; Z79.01 Long term (current) use of anticoagulants; Z79.82 Long term (current) use of aspirin

== ENCOUNTER 2017-07-07 02:58 | Observation (INO) | payer OTHER, MEDICARE ==
[~2017-07-07] VITALS: Ht 177.8 cm; Wt 74.9 kg
[~2017-07-07 02:58] MED LIST changes: -CIPR-255 PO; +CPR/500 PO; -PHEN95TA14 PO
[2017-07-07 04:19] LABS: BASO % 0.1 %; BASO ABS # 0.01 K/uL (0-0.2); EOS % 4.8 %; EOS ABS # 0.43 K/uL (0-0.5); HEMATOCRIT 39.7 % (42-52); HEMOGLOBIN 13.4 g/dL (14.0-18.0); IG# 0.02 K/uL (0.00-0.02); LYMPH % 22.2 %; LYMPH ABS # 1.99 K/uL (1.2-3.4); MEAN CELL VOLUME 91.9 fL (80-100); MEAN CORPUSCULAR HGB CONC 33.8 g/dl (32-36); MEAN PLATELET VOLUME 9.9 fL (7.4-10.4); MONO % 8.8 %; MONO ABS # 0.79 K/uL (0.11-0.59); NEUT % 63.9 %; NEUT ABS # 5.73 K/uL (1.4-6.5); PLATELET COUNT 137 K/uL (130-400); RED CELL DISTRIBUTION WIDTH CV 14.8 % (11.5-14.5); RED CELL DISTRIBUTION WIDTH SD 50.3 fL (36.4-46.3); WHITE BLOOD COUNT 8.97 K/uL (4.8-10.8)
[2017-07-07 04:39] LABS: CALCIUM 8.5 mg/dl (8.5-10.1); CREATININE 1.35 mg/dl (0.60-1.40)
[2017-07-07] MEDS ORDERED: SODIUM CHLORIDE 0.9% 500ML 500 ML IV STA (05:21)
[2017-07-07] MEDS ORDERED: MAGNESIUM HYDROXIDE SUSP 30 ML UDC PO PRN (07:00)
[2017-07-07] MEDS ORDERED: POLYETHYLENE (MIRALAX) 17 GM PACK PO PRN (07:00)
[2017-07-07] MEDS ORDERED: ALUMINUM/MAGNESIUM/SIMETH (MAALOX MAX) 30 ML UDC PO PRN (07:00)
[2017-07-07] MEDS ORDERED: ACETAMINOPHEN 325 MG TAB PO PRN (07:00)
[2017-07-07] MEDS ORDERED: ONDANSETRON INJ 2 MG/ML 2 ML VIAL IV PRN (07:00)
--- NOTE | 2017-07-07 07:02 | History and Physical ---
History & Physical Date & Time of Service: Jul 07, 2017 at 06:47 Chief Complaint: Urination Primary Care Physician: Berny Powell M.D. 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 He had been suffering from dysuria and hematuria prior to the diagnosis of cancer cells. The pt underwent scraping 2 weeks prior. He had held Xarelto and then resumed use four days after the procedure. He states that his hematuria has recurred and he has passed a few clots. This is not what brought him to the hospital however. He presents with a primary complaint of polyuria and states that he has had to urinate over 40 times over the last day. Polyuria was confirmed in the ER as he put out 750cc over the course of 2 hours, albeit after receiving a bolus of fluid as well. The pt's labs are at baseline and he exhibits neither hypernatremia nor a low urine SG. BUN/creat are at baseline. The urology service was contacted and have advised that the pt would best be served by referral to nephrology at present. He denies pain on urination, denies fevers, N/V, or diarrhea. Past Medical/Surgical History Medical Problems: (1) Atrial fibrillation Status: Chronic (2) Bladder cancer Status: Chronic Family History Cancer Diabetes mellitus Heart disease No pertinent family history Social History Smokes one pack/wk Smoking Status: Current Every Day Smoker Drug Use: none Marital Status: Housing status: lives with family Occupational Status: retired Immunizations History of Influenza Vaccine: No History of Tetanus Vaccine?: utd History of Pneumococcal: No Pneumococcal Date: Nov 28, 2009 History of Hepatitis B Vaccine: No Multi-Drug Resistant Organisms History of MDRO: No Allergies Coded Allergies: No Known Allergies (Verified , 07/07/17) NKDA Home Medications Scheduled Aspirin (Aspirin Ec), 81 MG PO Q2D Metoprolol Succinate (Toprol Xl), 100 MG PO HS Rivaroxaban (Xarelto), 15 MG PO HS Rosuvastatin Calcium (Crestor), 40 MG PO HS Review of Systems Constitutional: No fever, No chills, No sweats Eyes: No worsening of vision ENT: No hearing loss, No unusual epistaxis, No nasal symptoms Respiratory: No cough, No sputum, No wheezing Cardiovascular: No chest pain, No orthopnea, No PND Abdomen: No pain, No nausea, No vomiting Musculoskeletal: No joint pain Genitourinary - Male: + hematuria, + urinary frequency Neurologic: No memory loss, No weakness Psychiatric: No depression symptoms Endocrine: No fatigue Hematologic / Lymphatic: + abnormal bleeding/bruising Integumentary: No rash Allergic / Immunologic: No environmental allergies Physical Exam Vital Signs Date Time Temp Pulse Resp B/P (MAP) Pulse Ox O2 Delivery O2 Flow Rate FiO2 07/07/17 05:50 67 20 183/110 98 Room Air 07/07/17 04:02 56 20 175/99 99 Room Air 07/07/17 03:04 36.3 71 20 195/103 100 Room Air General Appearance: WD/WN, no apparent distress Head: normocephalic Eyes: normal inspection ENT: normal ENT inspection Neck: supple, no JVD Respiratory/Chest: chest non-tender, lungs clear, normal breath sounds Cardiovascular: no JVD, no murmur, + irregularly irregular Abdomen/GI: normal bowel sounds, non tender, soft Back: normal inspection, no CVA tenderness Extremities/Musculoskelatal: normal inspection Neurologic/Psych: road cutter II-XII nml as tested, no motor/sensory deficits, alert, oriented x 3 Skin: normal color Diagnostics Laboratory Results Results Past 24 Hours Test 07/07/17 04:00 07/07/17 04:08 07/07/17 06:30 Range/Units Urine Color YELLOW Urine Appearance CLEAR CLEAR Urine pH 7.5 4.5-7.5 Urine Specific [place] 1.006 1.000-1.030 Urine Protein NEG NEG Urine Glucose (UA) NEG NEG Urine Ketones NEG NEG Urine Occult Blood 3+ NEG Urine Nitrite NEG NEG Urine Bilirubin NEG NEG Urine Urobilinogen NEG NEG Urine Leukocyte Esterase NEG NEG Urine WBC (Auto) 1-5 0-5 /hpf Urine RBC (Auto) 10-30 0-4 /hpf Urine Hyaline Casts (Auto) 0 0-5 /lpf Urine Epithelial Cells (Auto) 0-5 0-5 /lpf Urine Bacteria (Auto) NEG NEG White Blood Count 8.97 4.8-10.8 K/uL Red Blood Count 4.32 4.7-6.1 M/uL Hemoglobin 13.4 14.0-18.0 g/dL Hematocrit 39.7 42-52 % Mean Corpuscular Volume 91.9 80-100 fL Mean Corpuscular Hemoglobin 31.0 25-34 pg Mean Corpuscular Hemoglobin Concent 33.8 32-36 g/dl Platelet Count 137 130-400 K/uL Mean Platelet Volume 9.9 7.4-10.4 fL Neutrophils (%) (Auto) 63.9 % Lymphocytes (%) (Auto) 22.2 % Monocytes (%) (Auto) 8.8 % Eosinophils (%) (Auto) 4.8 % Basophils (%) (Auto) 0.1 % Neutrophils # (Auto) 5.73 1.4-6.5 K/uL Lymphocytes # (Auto) 1.99 1.2-3.4 K/uL Monocytes # (Auto) 0.79 0.11-0.59 K/uL Eosinophils # (Auto) 0.43 0-0.5 K/uL Basophils # (Auto) 0.01 0-0.2 K/uL RDW Standard Deviation 50.3 36.4-46.3 fL RDW Coefficient of Variation 14.8 11.5-14.5 % Immature Granulocyte % (Auto) 0.2 % Immature Granulocyte # (Auto) 0.02 0.00-0.02 K/uL Sodium Level 139 136-145 mmol/L Potassium Level 4.0 3.5-5.1 mmol/L Chloride Level 106 98-107 mmol/L Carbon Dioxide Level 28 21-32 mmol/L Anion Gap 5.0 3-11 mmol/L Blood Urea Nitrogen 29 7-18 mg/dl Creatinine 1.35 0.60-1.40 mg/dl Est Creatinine Clear Calc Drug Dose 40.6 ml/min Estimated GFR () 54.7 Estimated GFR (Non- 47.2 BUN/Creatinine Ratio 21.3 10-20 Random Glucose 98 70-99 mg/dl Calcium Level 8.5 8.5-10.1 mg/dl Microbiology Results 07/07/17 Urine Culture, Received Pending Impression Assessment and Plan 86 y/o M Hx AF - on Xarelto, 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 He had been suffering from dysuria and hematuria prior to the diagnosis of cancer cells. The pt underwent scraping 2 weeks prior. He had held Xarelto and then resumed use four days after the procedure. He states that his hematuria has recurred and he has passed a few clots. This is not what brought him to the hospital however. He presents with a primary complaint of polyuria and states that he has had to urinate over 40 times over the last day. Polyuria was confirmed in the ER as he put out 750cc over the course of 2 hours, albeit after receiving a bolus of fluid as well. The pt's labs are at baseline and he exhibits neither hypernatremia nor a low urine SG. BUN/creat are at baseline. The urology service was contacted and have advised that the pt would best be served by referral to nephrology at present. 1) Polyuria - there is concern for dehydration and we were unable to contact nephrology AM to insure adequate f/u. The pt is assigned to observation. We will obtain urine and plasma OSM in addition to ADH levels. We will commence a 24 hour urine collection which can be terminated if he is advised on outpt follow-up. An unlikely scenario or etiology may be pituitary insult stemming from hypoperfusion during his recent procedure or an infarct due to interruption of Xarelto, leading to central insipidus. A normal saline bolus may have effected the initial lab results. 2) Hematuria - the pt is passing clots - we will hold his Xarelto and ASA - f/u with urology for resumption. 3) AF - continue Metoprolol 4) SBP is poorly controlled at time of admission - PRN Hydralazine provided. 5) Smoking cessation is advised although unlikely at this stage Full code - SCDS Total time for this admit including review of labs,meds, imaging - discussion with pt and ER attending - 35 min Level of Care Med/Surg Resuscitation Status FULL RESUSCITATION VTE Prophylaxis Given or contraindicated: SCD's
[2017-07-07] MEDS ORDERED: IV FLUIDS COMPLETED PRN (08:15)
[2017-07-07 11:45] VITALS: BP 185/93; PULSE 67; TEMP 36.2; O2SAT 94; Ht 177.8 cm; Wt 74.9 kg
--- NOTE | 2017-07-07 12:57 | Nephrology Consultation ---
Nephrology Consultation Date & Providers Date of Consultation: Jul 07, 2017. Primary Care Provider: Berny Powell M.D. Referring Provider: Reason for Consultation Polyuria History of Present Illness Mr. Maximo Humphrey is an 86-year-old male admitted to [facility] with polyuria. Maximo presented to the ED yesterday evening with gross hematuria, passage of clots and urinary frequency. The patient reportedly voided 750 ml in 2 hours while in the Emergency Department. He was admitted for observation and evaluation of polyuria. Medical history is notable for bladder CIS, coronary artery disease, carotid artery disease and chronic atrial fibrillation. The patient follows with Dr. Maguire in the cardiology clinic and Dr. Teixeira in the urology clinic. Cystoscopy with biopsy was performed on June 27. Gross hematuria persisted for nearly 3 days following the procedure. Increased fluid intake was encouraged. Maximo has been drinking approximately 8 glasses of water as well as 1 cup of coffee each day. Xarelto was held for 3 days. On the third post operative day, the medication was restarted. Urine was clear at that time. After several days without bleeding, hematuria returned yesterday. The patient also passed several clots. He experienced significant urinary frequency overnight. Maximo describes traveling to the bathroom every 15-20 minutes. He presented to the ED due to the discomfort of the symptom. The symptom onset was sudden. Urine was bloody. On arrival, a 500 ml 0.9% saline bolus was given and a continuous infusion of IV NSS started. High urine output was documented. UA demonstrated a low SG and (microscopic - reported clear, yellow urine) hematuria. Maximo was admitted for observation. A 24 hour urine collection has been started. Maximo has voided 100 ml of bloody urine without clots since 9: 30 this morning. Bladder scan revealed minimal PVR. Maximo denies hesitancy or weak urine stream. He has not experienced dysuria. Appetite is good. He is not excessively thirsty. He does not have any lightheadedness or dizziness. He reports chronic easy bleeding and bruising. He is maintained on Xarelto for atrial fibrillation as well as aspirin 81 mg daily for carotid disease. Metabolic profile was normal. I had a long conversation with the patient and his today. Maximo has multiple questions regarding his anticoagulation. Past Medical/Surgical History Medical: Coronary artery disease Carotid stenosis Chronic atrial fibrillation Bladder CIS Surgical: CABG Cysto and bladder biopsy Allergies Coded Allergies: No Known Allergies (Verified , 07/07/17) NKDA Inpatient Medications Current Inpatient Medications Medications (Trade) Dose Ordered Sig/Francie Route Start Time Stop Time Status Last Admin Dose Admin Acetaminophen (Tylenol Tab) 650 mg Q4H PRN PO 07/07/17 07:00 08/06/17 06:59 Al Hydrox/Mg Hydrox/Simethicone (Maalox Max Susp) 15 ml Q4H PRN PO 07/07/17 07:00 08/06/17 06:59 Magnesium Hydroxide (Milk Of Magnesia Susp) 30 ml Q6H PRN PO 07/07/17 07:00 08/06/17 06:59 Polyethylene (Miralax Powder Packet) 17 gm DAILY PRN PO 07/07/17 07:00 08/06/17 06:59 Ondansetron HCl (Zofran Inj) 4 mg Q6H PRN IV 07/07/17 07:00 08/06/17 06:59 Miscellaneous (Iv Fluids Completed) 1 ea PRN PRN N/A 07/07/17 08:15 07/07/18 08:14 Family History Cancer Diabetes mellitus Heart disease No pertinent family history Social History Smoking Status: Current Every Day Smoker Drug Use: none Marital Status: Housing Status: lives with family Occupation: retired Review of Systems A complete review of systems was performed. Pertinent positives are noted above. All other systems are negative. Physical Exam Date Time Temp Pulse Resp B/P (MAP) Pulse Ox O2 Delivery O2 Flow Rate FiO2 07/07/17 09:09 63 98 171/96 94 Room Air 07/07/17 07:46 50 18 178/95 97 Room Air 07/07/17 05:50 67 20 183/110 98 Room Air 07/07/17 04:02 56 20 175/99 99 Room Air 07/07/17 03:04 36.3 71 20 195/103 100 Room Air General Appearance: WD/WN, no apparent distress, + thin Head: normocephalic, atraumatic Eyes: normal inspection, sclerae normal ENT: normal ENT inspection, pharynx normal Neck: supple, no JVD Respiratory/Chest: lungs clear, no respiratory distress, no accessory muscle use Cardiovascular: no gallop, no murmur, + irregularly irregular Abdomen/GI: non tender, soft Back: no CVA tenderness Extremities/Musculoskelatal: normal inspection, no pedal edema Neurologic/Psych: alert, normal mood/affect Laboratory Results Last 24 Hours Test 07/07/17 04:00 07/07/17 04:08 07/07/17 10:26 Urine Color YELLOW Urine Appearance CLEAR Urine pH 7.5 Urine Specific [place] 1.006 Urine Protein NEG Urine Glucose (UA) NEG Urine Ketones NEG Urine Occult Blood 3+ Urine Nitrite NEG Urine Bilirubin NEG Urine Urobilinogen NEG Urine Leukocyte Esterase NEG Urine WBC (Auto) 1-5 /hpf Urine RBC (Auto) 10-30 /hpf Urine Hyaline Casts (Auto) 0 /lpf Urine Epithelial Cells (Auto) 0-5 /lpf Urine Bacteria (Auto) NEG White Blood Count 8.97 K/uL Red Blood Count 4.32 M/uL Hemoglobin 13.4 g/dL Hematocrit 39.7 % Mean Corpuscular Volume 91.9 fL Mean Corpuscular Hemoglobin 31.0 pg Mean Corpuscular Hemoglobin Concent 33.8 g/dl Platelet Count 137 K/uL Mean Platelet Volume 9.9 fL Neutrophils (%) (Auto) 63.9 % Lymphocytes (%) (Auto) 22.2 % Monocytes (%) (Auto) 8.8 % Eosinophils (%) (Auto) 4.8 % Basophils (%) (Auto) 0.1 % Neutrophils # (Auto) 5.73 K/uL Lymphocytes # (Auto) 1.99 K/uL Monocytes # (Auto) 0.79 K/uL Eosinophils # (Auto) 0.43 K/uL Basophils # (Auto) 0.01 K/uL RDW Standard Deviation 50.3 fL RDW Coefficient of Variation 14.8 % Immature Granulocyte % (Auto) 0.2 % Immature Granulocyte # (Auto) 0.02 K/uL Sodium Level 139 mmol/L Potassium Level 4.0 mmol/L Chloride Level 106 mmol/L Carbon Dioxide Level 28 mmol/L Anion Gap 5.0 mmol/L Blood Urea Nitrogen 29 mg/dl Creatinine 1.35 mg/dl Est Creatinine Clear Calc Drug Dose 40.6 ml/min Estimated GFR () 54.7 Estimated GFR (Non- 47.2 BUN/Creatinine Ratio 21.3 Random Glucose 98 mg/dl Osmolality 298 mOsm/kg Calcium Level 8.5 mg/dl Impression (1) Polyuria (2) Hematuria (3) Bladder cancer (4) Atrial fibrillation Mr. Maximo Humphrey is an 86-year-old male with coronary artery disease, chronic atrial fibrillation and bladder CIS. He was admitted with polyuria and hematuria. The patient recently underwent cystoscopy and bladder biopsy. Hematuria resolved following the procedure but returned shortly after anticoagulation was restarted. H/H is stable. He passed a few clots without difficulty. There was no evidence of urinary retention on PVR. Maximo was also experiencing polyuria. He has not been polyuric over the past several hours since leaving the ED. Volume status is appropriate. BP is elevated (he has not received metoprolol). There are no orthostatic changes in vitals. Metabolic profile was normal (there was no evidence of hypernatremia or renal insufficiency). The patient does not have excessive thirst. Urine analysis documented a low SG and microscopic hematuria. Urine collected as part of 24 hour urine collection is leander colored without clots. The patient does not appear to be polyuric at this time. To substantiate this finding, he is agreeable to repeating a 24 hour urine collection at home. I am able to arrange follow up next week. I will discuss anticoagulation with others involved in care. Based on current findings, I do not think additional inpatient monitoring or evaluation for polyuria are necessary at this time.
[2017-07-07] MEDS ORDERED: LISINOPRIL 10 MG TAB PO STA (14:52)
[2017-07-07] MEDS ORDERED: LISI-461 PO (15:15)
--- NOTE | 2017-07-07 15:17 | Discharge Instructions ---
Discharge Instructions Date of Service Jul 07, 2017. Admission Reason for Admission: Hematuria,Polyuria Discharge Discharge Diagnosis / Problem: Polyuria Discharge Goals Goal(s): Decrease discomfort, Improve function Activity Recommendations Activity Limitations: resume your previous activity . Instructions / Follow-Up Instructions / Follow-Up Followup with Nephrology Dr. Aram Michaud either Sunday or Sunday Followup with Cardiology on Sunday to discuss continuance of xarelto. Obtain 24 hour urine starting tomorrow. Current Hospital Diet Patient's current hospital diet: Regular Diet Discharge Diet Recommended Diet: Regular Diet Pending Studies Studies pending at discharge: no Medical Emergencies . Who to Call and When: Medical Emergencies: If at any time you feel your situation is an emergency, please call 911 immediately. . Non-Emergent Contact Non-Emergency issues call your: Primary Care Provider Call Non-Emergent contact if: you have any medication questions . . "Provider Documentation" section prepared by Pop Cabral. . VTE Core Measure Inpt VTE Proph given/why not?: SCD's
[2017-07-07 15:41] VITALS: BP 185/93; PULSE 67; TEMP 36.2; O2SAT 94
--- NOTE | 2017-07-07 21:53 | Discharge Summary ---
Discharge Summary Date of Service Jul 07, 2017. Discharge Summary Admission Date: Jul 07, 2017 at 07:06 Discharge Date: Jul 07, 2017 Immunizations: Have You Had Influenza Vaccine: No History of Tetanus Vaccine?: utd History of Pneumococcal: No Pneumococcal Date: Nov 28, 2009 History of Hepatitis B Vaccine: No Hospital Course This includes examination of the patient, discharge planning, medication reconciliation, and communication with other providers. Discharge Instructions Please refer to the electronic Patient Visit Report (Discharge Instructions) for additional information.
--- NOTE | 2017-07-07 22:56 | EMERGENCY ROOM VISIT NOTE ---
History Report prepared by Adi: Rocio Vera Under the Supervision of: Dr. Rebecca Dominguez D.O. First contact with patient: 03:18 Chief Complaint: URINARY SYMPTOMS Stated Complaint: URINATION History of Present Illness The patient is an 86 year old male who presents to the Emergency Room with complaints of worsening urinary symptoms starting 2 hours ago. The patient states that he has urination frequency and has gone 20 times in 4.5 hours. He describes passing a large amount of urine. He notes that he does produce urine every time he urinates. The patient denies this ever happening before. The patient denies abdominal pain, new medicines, leg cramping, and leg swelling. He notes that he had a bladder scraping 10 days ago. Source of History: patient Onset: 2 hours ago Position: other (global) Quality: other (urinary) Timing: worsening Associated Symptoms: No abdominal pain Note: The patient denies leg cramping and leg swelling. Review of Systems See HPI for pertinent positives & negatives. A total of 10 systems reviewed and were otherwise negative. Past Medical & Surgical Medical Problems: (1) Atrial fibrillation (2) Bladder cancer (3) Hematuria (4) Polyuria Surgical Problems: (1) S/P cholecystectomy Family History Cancer Diabetes mellitus Heart disease No pertinent family history Social History Smoking Status: Current Every Day Smoker Alcohol Use: occasionally Drug Use: none Marital Status: Housing Status: lives with family Occupation Status: retired Current/Historical Medications Scheduled Aspirin (Aspirin Ec), 81 MG PO Q2D Lisinopril (Lisinopril), 1 TAB PO DAILY Metoprolol Succinate (Toprol Xl), 100 MG PO HS Rosuvastatin Calcium (Crestor), 40 MG PO HS Allergies Coded Allergies: No Known Allergies (Verified , 07/07/17) NKDA Physical Exam Vital Signs Date Time Temp Pulse Resp B/P (MAP) Pulse Ox O2 Delivery O2 Flow Rate FiO2 07/07/17 05:50 67 20 183/110 98 Room Air 07/07/17 04:02 56 20 175/99 99 Room Air 07/07/17 03:04 36.3 71 20 195/103 100 Room Air Physical Exam HEENT: Head - normocephalic and atraumatic Pupils are equal, round, and reactive to light. Extraocular eye muscles are intact, and sclera are anicteric. Nose - moist nasal mucosa without discharge. Mouth - moist buccal mucosa. Oropharynx is nonerythematous and there is no tonsillar exudate or edema noted. Neck: Supple; no JVD, nuchal rigidity, cervical lymphadenopathy. Heart: Regular rate and rhythm. There is a normal S1 and S2 with no murmurs, clicks, or gallops appreciated. Lungs: Clear to auscultation bilaterally with no wheezes, rales, or rhonchi. Abdomen: Soft, completely nontender, nondistended, with good bowel sounds. There are no palpable pulsatile masses or hepatosplenomegaly. There is no guarding, rigidity, or rebound noted. Extremities: No evidence of cyanosis, clubbing, or edema. There are easily palpable peripheral pulses. Skin: warm and dry with good turgor and no rashes. Medical Decision & Procedures Laboratory Results 07/07/17 04:08 Red Blood Count 4.32, Mean Corpuscular Volume 91.9, Mean Corpuscular Hemoglobin 31.0, Mean Corpuscular Hemoglobin Concent 33.8, Mean Platelet Volume 9.9, Neutrophils (%) (Auto) 63.9, Lymphocytes (%) (Auto) 22.2, Monocytes (%) (Auto) 8.8, Eosinophils (%) (Auto) 4.8, Basophils (%) (Auto) 0.1, Neutrophils # (Auto) 5.73, Lymphocytes # (Auto) 1.99, Monocytes # (Auto) 0.79, Eosinophils # (Auto) 0.43, Basophils # (Auto) 0.01 07/07/17 04:08 Test 07/07/17 04:00 07/07/17 04:08 Urine Color YELLOW Urine Appearance CLEAR (CLEAR) Urine pH 7.5 (4.5-7.5) Urine Specific [place] 1.006 (1.000-1.030) Urine Protein NEG (NEG) Urine Glucose (UA) NEG (NEG) Urine Ketones NEG (NEG) Urine Occult Blood 3+ (NEG) Urine Nitrite NEG (NEG) Urine Bilirubin NEG (NEG) Urine Urobilinogen NEG (NEG) Urine Leukocyte Esterase NEG (NEG) Urine WBC (Auto) 1-5 /hpf (0-5) Urine RBC (Auto) 10-30 /hpf (0-4) Urine Hyaline Casts (Auto) 0 /lpf (0-5) Urine Epithelial Cells (Auto) 0-5 /lpf (0-5) Urine Bacteria (Auto) NEG (NEG) White Blood Count 8.97 K/uL (4.8-10.8) Red Blood Count 4.32 M/uL (4.7-6.1) Hemoglobin 13.4 g/dL (14.0-18.0) Hematocrit 39.7 % (42-52) Mean Corpuscular Volume 91.9 fL (80-100) Mean Corpuscular Hemoglobin 31.0 pg (25-34) Mean Corpuscular Hemoglobin Concent 33.8 g/dl (32-36) Platelet Count 137 K/uL (130-400) Mean Platelet Volume 9.9 fL (7.4-10.4) Neutrophils (%) (Auto) 63.9 % Lymphocytes (%) (Auto) 22.2 % Monocytes (%) (Auto) 8.8 % Eosinophils (%) (Auto) 4.8 % Basophils (%) (Auto) 0.1 % Neutrophils # (Auto) 5.73 K/uL (1.4-6.5) Lymphocytes # (Auto) 1.99 K/uL (1.2-3.4) Monocytes # (Auto) 0.79 K/uL (0.11-0.59) Eosinophils # (Auto) 0.43 K/uL (0-0.5) Basophils # (Auto) 0.01 K/uL (0-0.2) RDW Standard Deviation 50.3 fL (36.4-46.3) RDW Coefficient of Variation 14.8 % (11.5-14.5) Immature Granulocyte % (Auto) 0.2 % Immature Granulocyte # (Auto) 0.02 K/uL (0.00-0.02) Anion Gap 5.0 mmol/L (3-11) Est Creatinine Clear Calc Drug Dose 40.6 ml/min Estimated GFR () 54.7 Estimated GFR (Non- 47.2 BUN/Creatinine Ratio 21.3 (10-20) Osmolality 298 mOsm/kg (280-300) Calcium Level 8.5 mg/dl (8.5-10.1) Laboratory results per my review. Medications Administered Medications (Trade) Dose Ordered Sig/Francie Route Start Time Stop Time Status Last Admin Dose Admin Sodium Chloride 500 ml @ 999 mls/hr Q31M STAT IV 2/3/18 05:21 07/07/17 05:51 DC 07/07/17 05:21 999 MLS/HR Procedure 0521: Ordered NSS 500 ml @ 999 mls/hr IV. ED Course 0323: Past medical records reviewed. The patient was evaluated in room B8. A complete history and physical exam was performed. An IV lock was initiated and labs are drawn as above. A bladder scan was performed. A urinalysis was obtained. 0521: The patient continued to urinate a large amount while here in the emergency department. Laboratory studies revealed an elevated BUN concerning for dehydration. Ordered NSS 500 ml @ 999 mls/hr IV. 0607: I reevaluated the patient and he is still putting out a significant amount of urine. Nursing staff began to collect the urine to calculate his output. At this time, we are at greater than 700 mL of urine. All of the urine he produced here in the emergency Department had not been collected. 0614: I discussed the patient's case with Dr. Strong- Urology. He suggested talking to internal medicine and possibly nephrology. 0627: Discussed the patient's case with Dr. Okeefe. The patient will be evaluated for further management. 0630: I reevaluated the patient and updated him on his treatment plan. Medical Decision The patient is an 86 year old male who presents to the Emergency Room with complaints of worsening urinary symptoms starting 2 hours ago. Differential diagnose include UTI, urinary retention, high output diuresis, polyuria, urinary frequency hematuria. LABS: Urine 3+ blood, 10-30 red cells BUN 29 Creatine 1.3 Normal glucose Hemoglobin slightly low at 13.4 This is an 86 year old male patient presents to the emergency department with polyuria. The patient has no history of this. 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 I'm not convinced that this has anything to do with his presentation with urinary frequency and polyuria. The patient has no history of obstructive uropathy or bowel obstruction to suggest a reason for high output diuresis. I'm concerned that the patient will continue to urinate at such high volumes become increasingly dehydrated. I discussed the case with the [facility] Hospitalist group and they will evaluate for further management. Medication Reconcilliation Current Medication List: was personally reviewed by me Blood Pressure Screening Patient's blood pressure: Elevated blood pressure Will be further monitored by the hospitalist. Consults Time Called: 06 Consulting Physician: Dr. Strong- Urology Returned Call: [phone] I discussed the patient's case with Dr. Strong- Urologluciana. He states that he thinks it is a kidney problem. Additional Consults: Time Called: [phone] Consulted Physician: Dr. Gallagher [facility] Hospitalist Returned Call: [phone] Additional Comments: Discussed the patient's case with Dr. Okeefe. The patient will be evaluated for further management. Impression Primary Impression: Polyuria Scribe Attestation The scribe's documentation has been prepared under my direction and personally reviewed by me in its entirety. I confirm that the note above accurately reflects all work, treatment, procedures, and medical decision making performed by me. Departure Information Dispostion Being Evaluated By Hospitalist Prescriptions Lisinopril (Lisinopril) 10 Mg Tab 1 TAB PO DAILY for 30 Days, #30 TAB 3 Refills Prov: Pop Cabral M.D. 07/07/17 Referrals No Doctor, Assigned (PCP) Patient Instructions My [facility]
== END 2017-07-07 16:35 | disposition home or self-care (01) ==
LOC: C.EDB 02:58 → C.4E 07:06 → ENRESERV 08:50
PROVIDERS: ADMIT Internal Medicine; ATTEND Internal Medicine
DX: R35.8 Other polyuria (principal); I48.91 Unspecified atrial fibrillation; Z85.51 Personal history of malignant neoplasm of bladder; Z90.49 Acquired absence of other specified parts of digestive tract; Z82.49 Family history of ischemic heart disease and other diseases of the circulatory system; Z83.3 Family history of diabetes mellitus; Z79.82 Long term (current) use of aspirin; Z79.01 Long term (current) use of anticoagulants; I25.10 Atherosclerotic heart disease of native coronary artery without angina pectoris

== ENCOUNTER 2017-07-10 22:42 | Emergency (ER) | payer OTHER, MEDICARE ==
[~2017-07-10] VITALS: Ht 177.8 cm; Wt 74.9 kg
[~2017-07-10 22:42] MED LIST changes: -CPR/500 PO; +LISI-461 PO; -RIVA1.5T PO
[2017-07-10 22:47] VITALS: Ht 177.8 cm; Wt 74.9 kg
--- NOTE | 2017-07-10 23:26 | EMERGENCY ROOM VISIT NOTE ---
History Report prepared by Adi: Suzanne Cintron Under the Supervision of: Dr. Mirna Ramos D.O. First contact with patient: 23:11 Chief Complaint: HEMATURIA Stated Complaint: BLOOD IN URINE Nursing Triage Summary: Pt reports he had surgery on bladder on June 25. Bi pt having blood in urine. History of Present Illness The patient is a 86 year old male who presents to the Emergency Room with complaints of persistent blood in urine that started earlier today. He notes his urine today was a much darker red than the past few days. The patient denies any clots in his urine. He notes he had bladder surgery two weeks ago. The patient is also on blood thinners because of a history of Afib. He notes he was bleeding after and was taken off Xarelto. He now takes Aspirin. He notes he has not seen his urologist since his surgery. He reports he was in the Urologist 's office last week but did not see his normal urologist due to vacation. He states he is supposed to see him in 3 days. The patient denies any nausea, vomiting, abdominal pain, back pain, dizziness, or fevers. He notes his appetite has been normal. He states he has been having frequent urination. When he urinates, he feels better but it does not last long. He denies any pain while urinating. The patient's urologist is Dr. Teixeira. This HPI was difficult to obtain secondary to confusion and miscommunication between and . Source of History: patient Onset: earlier today Position: other (urine) Timing: other (persistent) Associated Symptoms: + urinary symptoms (frequent urination), No fevers, No nausea, No vomiting, No abdominal pain, No back pain, No diarrhea Review of Systems See HPI for pertinent positives & negatives. A total of 10 systems reviewed and were otherwise negative. Past Medical & Surgical Medical Problems: (1) Atrial fibrillation (2) Bladder cancer (3) Hematuria (4) Polyuria Surgical Problems: (1) S/P cholecystectomy Family History Cancer Diabetes mellitus Heart disease No pertinent family history Social History Smoking Status: Former Smoker Alcohol Use: occasionally Drug Use: none Marital Status: Housing Status: lives with family Occupation Status: retired Current/Historical Medications Scheduled Aspirin (Aspirin Ec), 81 MG PO Q2D Lisinopril (Zestril), 10 MG PO DAILY Metoprolol Succinate (Toprol Xl), 100 MG PO HS Rosuvastatin Calcium (Crestor), 40 MG PO HS Allergies Coded Allergies: No Known Allergies (Verified , 07/10/17) NKDA Physical Exam Vital Signs Date Time Temp Pulse Resp B/P (MAP) Pulse Ox O2 Delivery O2 Flow Rate FiO2 07/11/17 02:56 36.5 72 18 160/91 99 07/11/17 00:52 73 18 160/91 99 Room Air 07/10/17 22:47 36.5 82 16 161/96 98 Room Air Physical Exam GENERAL: alert, well appearing, well nourished, no distress, non-toxic EYE EXAM: normal conjunctiva, PERRL and EOM's grossly intact OROPHARYNX: no exudate, no erythema, lips, buccal mucosa, and tongue normal and mucous membranes are moist NECK: supple, no nuchal rigidity, no adenopathy, non-tender LUNGS: Clear to auscultation. Normal chest wall mechanics HEART: no murmurs, S1 normal and S2 normal ABDOMEN: abdomen soft, non-tender, normo-active bowel sounds, no masses, no rebound or guarding. BACK: Back is symmetrical on inspection and there is no deformity, no midline tenderness, no CVA tenderness. SKIN: no rashes and no bruising UPPER EXTREMITIES: upper extremities are grossly normal. LOWER EXTREMITIES: No pitting edema. Medical Decision & Procedures ER Provider Diagnostic Interpretation: Radiology results have been interpreted by the radiologist and reviewed by me. US RENAL: Irregular-shaped mass with also flow seen within the posterior left wall of the urinary bladder measuring 2.3 x 2.9 x 3.4 cm. Findings are concerning for neoplasm. Mild prominence of the right renal collecting system without overt hydronephrosis. Left kidney is unremarkable. No hydronephrosis. Laboratory Results 07/10/17 23:40 Red Blood Count 4.18, Mean Corpuscular Volume 91.1, Mean Corpuscular Hemoglobin 31.3, Mean Corpuscular Hemoglobin Concent 34.4, Mean Platelet Volume 10.1, Neutrophils (%) (Auto) 65.7, Lymphocytes (%) (Auto) 22.0, Monocytes (%) (Auto) 8.8, Eosinophils (%) (Auto) 3.1, Basophils (%) (Auto) 0.2, Neutrophils # (Auto) 6.38, Lymphocytes # (Auto) 2.13, Monocytes # (Auto) 0.85, Eosinophils # (Auto) 0.30, Basophils # (Auto) 0.02 07/10/17 23:40 Test 07/10/17 23:40 White Blood Count 9.70 K/uL (4.8-10.8) Red Blood Count 4.18 M/uL (4.7-6.1) Hemoglobin 13.1 g/dL (14.0-18.0) Hematocrit 38.1 % (42-52) Mean Corpuscular Volume 91.1 fL (80-100) Mean Corpuscular Hemoglobin 31.3 pg (25-34) Mean Corpuscular Hemoglobin Concent 34.4 g/dl (32-36) Platelet Count 148 K/uL (130-400) Mean Platelet Volume 10.1 fL (7.4-10.4) Neutrophils (%) (Auto) 65.7 % Lymphocytes (%) (Auto) 22.0 % Monocytes (%) (Auto) 8.8 % Eosinophils (%) (Auto) 3.1 % Basophils (%) (Auto) 0.2 % Neutrophils # (Auto) 6.38 K/uL (1.4-6.5) Lymphocytes # (Auto) 2.13 K/uL (1.2-3.4) Monocytes # (Auto) 0.85 K/uL (0.11-0.59) Eosinophils # (Auto) 0.30 K/uL (0-0.5) Basophils # (Auto) 0.02 K/uL (0-0.2) RDW Standard Deviation 49.6 fL (36.4-46.3) RDW Coefficient of Variation 14.9 % (11.5-14.5) Immature Granulocyte % (Auto) 0.2 % Immature Granulocyte # (Auto) 0.02 K/uL (0.00-0.02) Prothrombin Time 10.7 SECONDS (9.0-12.0) Prothromb Time International Ratio 1.0 (0.9-1.1) Anion Gap 7.0 mmol/L (3-11) Est Creatinine Clear Calc Drug Dose 41.5 ml/min Estimated GFR () 56.2 Estimated GFR (Non- 48.5 BUN/Creatinine Ratio 18.6 (10-20) Calcium Level 8.7 mg/dl (8.5-10.1) Laboratory results per my review. Medications Administered Medications (Trade) Dose Ordered Sig/Francie Route Start Time Stop Time Status Last Admin Dose Admin Phenazopyridine HCl (Pyridium Tab) 200 mg NOW STAT PO 07/11/17 02:37 07/11/17 02:38 DC 07/11/17 02:44 200 MG Phenazopyridine HCl (Phenazopyridine HCl 200MG Home Pack) 1 homepack UD ONCE PO 07/11/17 02:45 07/11/17 02:46 DC 07/11/17 02:44 1 HOMEPACK ED Course 2311: The patient was evaluated in room A9B. A complete history and physical exam was performed. 0215: I updated the patient on his results. I offered to call Dr. Teixeira and his declined stating they have an appointment on Sunday. I performed a repeat exam and he is still urinating here and has gross hematuria but no clots. The patient has no back pain or fevers. He seems anxious regarding the discoloration of urine. He is ready for discharge. 0237: Pyridium Tab 200 mg PO. 0245: Phenazopyridine 1 homepack PO. Medical Decision Differential diagnosis: Etiologies such as renal colic, appendicitis, diverticulitis, mesenteric ischemia, aortic pathology, infections, inflammatory bowel disease, PUD, biliary pathology, UTI, as well as others were entertained. Pt without fevers/abd pain/back pain, able to urinate here. Urine grossly bloody however no clots. H/H stable, no renal dysfunction. Recent cultures all negative, repeat sent as a precaution. Pt advised to call and follow-up with his urologist as soon as possible. US showed mass previously noted in the bladder. No hydro or other obstructive pathology noted. Discussed at length with pt and . comfortable going home and pt still with concerns about persistent bleeding. I do not suspect bacteremia/sepsis, significant blood loss , new renal injury. Due to inclement impending weather, we were advised all [place] offices would be closed the next day. I had already discharged the patient and told them to call their urologist in the morning. I discussed the case with Dr. Terry who felt pt could safely be discharged and that no acute intervention would be warranted on the patient unless he was symptomatic or had a change in his H/H or renal function. When pt was admitted previously, he had been taken off his xarelto and continued on asa 81 mg given his cardiac hx. He would pass along information to his colleague. Medication Reconcilliation Current Medication List: was personally reviewed by me Blood Pressure Screening Patient's blood pressure: Elevated blood pressure Blood pressure disposition: Elevated BP felt to be situational Impression Primary Impression: Hematuria Additional Impressions: Bladder cancer History of biopsy of bladder Scribe Attestation The scribe's documentation has been prepared under my direction and personally reviewed by me in its entirety. I confirm that the note above accurately reflects all work, treatment, procedures, and medical decision making performed by me. Departure Information Dispostion Home / Self-Care Referrals Berny Powell M.D. (PCP) Patient Instructions My [facility] Additional Instructions Please keep your appointment with urology on Sunday. Please continue drinking plenty of water. Please continue your current medications as prescribed. Please continue to monitor your urine for any changes. If you develop abdominal pain, back pain, fevers/chills, nausea/vomiting, are unable to urinate , develop clots, or you have any other new or concerning symptoms, please return to the emergency room. Problem Qualifiers Primary Impression: Hematuria Hematuria type: unspecified type Qualified Codes: R31.9 - Hematuria, unspecified Additional Impressions: Bladder cancer Bladder location: posterior wall Qualified Codes: C67.4 - Malignant neoplasm of posterior wall of bladder
[2017-07-10] MEDS ORDERED: LISI-461 PO (23:35)
[2017-07-10 23:57] LABS: BASO % 0.2 %; BASO ABS # 0.02 K/uL (0-0.2); EOS % 3.1 %; HEMATOCRIT 38.1 % (42-52); HEMOGLOBIN 13.1 g/dL (14.0-18.0); IG# 0.02 K/uL (0.00-0.02); LYMPH ABS # 2.13 K/uL (1.2-3.4); MEAN CELL VOLUME 91.1 fL (80-100); MEAN CORPUSCULAR HEMOGLOBIN 31.3 pg (25-34); MEAN CORPUSCULAR HGB CONC 34.4 g/dl (32-36); MEAN PLATELET VOLUME 10.1 fL (7.4-10.4); MONO % 8.8 %; MONO ABS # 0.85 K/uL (0.11-0.59); NEUT % 65.7 %; NEUT ABS # 6.38 K/uL (1.4-6.5); PLATELET COUNT 148 K/uL (130-400); RED CELL DISTRIBUTION WIDTH CV 14.9 % (11.5-14.5); RED CELL DISTRIBUTION WIDTH SD 49.6 fL (36.4-46.3)
[2017-07-11 00:11] LABS: CALCIUM 8.7 mg/dl (8.5-10.1); CREATININE 1.32 mg/dl (0.60-1.40); POTASSIUM 3.8 mmol/L (3.5-5.1)
[2017-07-11] MEDS ORDERED: PHENAZOPYRIDINE HCL 200 MG TAB PO STA (02:37)
[2017-07-11] MEDS ORDERED: PHENAZOPYRIDINE HOME PACK 200 MG VIAL PO ONE (02:45)
[2017-07-11 02:56] VITALS: BP 160/91; PULSE 72; TEMP 36.5; O2SAT 99
--- NOTE | 2017-07-11 06:47 | DIAGNOSTIC IMAGING REPORT ---
(RENAL)RETROPERITON COMP CLINICAL HISTORY: 86 years-old Male presenting with hematuria, urgency. TECHNIQUE: Real-time grayscale and limited color Doppler ultrasound imaging of the kidneys and bladder was performed. COMPARISON: 06/28/2017. FINDINGS: Right kidney: Normal echogenicity of renal parenchyma. Right kidney measures 9.9 cm. Mild pelviectasis versus extrarenal pelvis. No convincing evidence of hydronephrosis. No convincing evidence of calculus or mass. Normal perfusion. Left kidney: Normal echogenicity of renal parenchyma. Left kidney measures 10.1 cm. No hydronephrosis. No convincing evidence of calculus or mass. Normal perfusion. Bladder: Polypoid thickening along the left posterior lateral aspect of the bladder wall with equivocal internal flow at the base on color Doppler. This measures 2.3 x 2.9 x 3.4 cm. This is not mobile. Additionally, multiple bladder diverticula noted. Bilateral ureteral jets visualized. Post void residual volume measures 18.5 mL, which is normal. Other: None. IMPRESSION: 1. Polypoid vascular mass along the left posterior lateral aspect of the bladder. This does not appear to obstruct the left ureter. This is highly suspicious for neoplasm. Cystoscopy recommended. 2. No hydronephrosis. Electronically signed by: Vasu Samayoa M.D. 07/11/2017 6:45 AM Dictated Date/Time: 07/11/2017 6:40 AM
== END 2017-07-11 02:57 | disposition home or self-care (01) ==
LOC: C.EDB 22:45 → C.EDA 07-11 02:57
DX: R31.9 Hematuria, unspecified (principal); C67.4 Malignant neoplasm of posterior wall of bladder; I48.91 Unspecified atrial fibrillation; Z79.82 Long term (current) use of aspirin; Z87.891 Personal history of nicotine dependence; Z83.3 Family history of diabetes mellitus

== ENCOUNTER 2019-06-11 06:00 | Inpatient (IN) ==
[2019-06-11 06:35] LABS: Basophils # (auto) 0.01 K/uL (0-0.2); Basophils % (auto) 0.1 %; Eosinophils # (auto) 0.48 K/uL (0-0.5); Eosinophils % (auto) 5.7 %; Hemoglobin 12.9 g/dL (14.0-18.0); Immature Granulocytes # (auto) 0.02 K/uL (0.00-0.02); Immature Granulocytes % (auto) 0.2 %; Lymphocytes % (auto) 22.6 %; Mean Corpuscular Hemoglobin 30.8 pg (25-34); Mean Corpuscular Hgb Conc 33.1 g/dL (32-36); Mean Corpuscular Volume 93.1 fL (80-100); Monocytes # (auto) 0.77 K/uL (0.11-0.59); Monocytes % (auto) 9.1 %; Neutrophils # (auto) 5.24 K/uL (1.4-6.5); Neutrophils % (auto) 62.3 %; Platelet Count 171 K/uL (130-400); RDW Standard Deviation 54.1 fL (36.4-46.3); Red Blood Count 4.19 M/uL (4.7-6.1); White Blood Count 8.42 K/uL (4.8-10.8)
[2019-06-11 06:45] LABS: INR 1.3 (0.9-1.1); Prothrombin Time 13.1 Seconds (9.0-12.0)
[2019-06-11 06:55] LABS: Albumin Level 3.1 gm/dl (3.4-5.0); BUN Creatinine Ratio 24.4 (10-20); Calcium 8.7 mg/dl (8.5-10.1); Creatinine Clr Calc Pharmacy 52.1 ml/min; Est GFR (African American) 82.5; Est GFR (Non-African American) 71.2
[2019-06-11 07:05] LABS: Albumin Globulin Ratio 0.7 (0.9-2); Bilirubin,Total 0.9 mg/dl (0.2-1); Globulin 4.3 gm/dl (2.5-4.0); Thyroid Stimulating Hormone 8.28 uIu/ml (0.300-4.500); Total Protein 7.4 gm/dl (6.4-8.2)
[2019-06-11 07:26] LABS: Appearance Urine Turbid (Clear); Bilirubin Urine Negative (Negative); Blood Urine 3+ (Negative); Color Urine Red; Glucose Urine UA Negative (Negative); Ketones Urine Negative (Negative); Leukocyte Esterase Urine Negative (Negative); Nitrite Urine Negative (Negative); Protein Urine 2+ (Negative); Specific Gravity Urine 1.015 (1.000-1.030); Urobilinogen Urine Negative (Negative)
[2019-06-11 07:31] LABS: T4 Free Thyroxine 0.97 ng/dl (0.8-1.6)
[2019-06-11 07:32] LABS: Magnesium 1.9 mg/dl (1.8-2.4); RBC Urine >30 /hpf (0-4)
[2019-06-11 07:33] LABS: Bacteria Urine Negative (Negative); WBC Urine >30 /hpf (0-5)
[2019-06-11] MEDS ORDERED: IOVERSOL 100ml IV PRN (07:56)
--- NOTE | 2019-06-11 08:15 | CT Scan Report ---
CT OF THE ABDOMEN AND PELVIS WITH CONTRAST CLINICAL HISTORY: Hematuria. COMPARISON STUDY: CT of abdomen and pelvis June 06, 2019. Renal ultrasound June 28, 2017. TECHNIQUE: Following IV administration of 93 mL of Optiray-320, axial images of the abdomen and pelvi s were obtained from the lung bases to the proximal femurs. Images were reviewed in the axial, sagitt al, and coronal planes. IV contrast was administered without complication. Automated exposure contro l was utilized for the study. A dose lowering technique was utilized adhering to the principles of A AMITA. CT DOSE: 530.12 mGycm FINDINGS: Imaged portions of the lower chest demonstrate moderate cardiomegaly. There is traction bro nchiectasis with honeycombing. 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 No pneumatosis, free air or portal venous gas is present. Lateral segment hepatic cyst is noted. There is no biliary ductal dilatation status post cholecystectomy. Heterogeneous enhancement of the liver may be related to heart dysfunction. The spleen, adrenal glands, kidneys and pancreas are unremarkable. There is ex tensive colonic diverticulosis without evidence for acute diverticulitis. There is no hydronephrosis. No urinary calculi are identified. Bladder wall thickening with trabecula tion is noted. There are multiple bladder diverticula. There is a 1.6 cm nodular focus arising from t he left posterior lateral aspect of the bladder. Apparent posterior bladder wall thickening is noted. Alternatively, this could reflect clot. Postoperative findings within the prostate are noted. The pr ostate is enlarged. There is no abdominal or pelvic lymphadenopathy. There is extensive aortoiliac at herosclerotic plaque with mild dilatation of the left common iliac artery. No suspicious osseous lesi ons are noted. No evidence for a bowel obstruction. The appendix is normal. IMPRESSION: 1. 1.6 cm nodular focus along the left posterolateral wall of the bladder. This is suggestive of a ur othelial tumor. Posterior bladder wall thickening may reflect additional urothelial tumor or clot. Th e findings could be correlated with cystoscopy. 2. No hydronephrosis. No urinary calculi. 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 3. 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 ACT 112: Negative or not required by law. Electronically signed by: Humberto Malcolm M.D. 06/11/2019 8:14 AM
[2019-06-11] MEDS ORDERED: HydrALAZINE HCL 20 MG/ML VIAL IV PRN (11:00)
[2019-06-11] MEDS ORDERED: ONDANSETRON INJ 2 MG/ML 2 ML VIAL IV PRN (11:00)
[2019-06-11] MEDS ORDERED: ACETAMINOPHEN 325 MG TAB PO PRN (11:00)
--- NOTE | 2019-06-11 11:00 | Urology Consultation ---
Date of Consultation June 11, 2019 Assessment & Plan (1) Hematuria: 88yo M with gross hematuria s/p cysto/fulguration on anticoagulation, putnam placed. Encouraged by stable labs, VS. Pt tolerating catheter well, draining uribe red. Okay to hand irrigate gently for clots. May benefit from placing Xarelto on hold, will allow primary team to discuss. Will have Dr. Teixeira review imaging to be sure nothing further to add at this time. Would prefer conservative measures at this time, okay to allow diet from perspective. History of Present Illness Attending Physician: Rory Shook MD History of Present Illness 88yo M, known to Dr. Teixeira, with hx of mild cognitive impairment, hard of hearing, afib on Xarelto, bladder cancer was admitted via [facility] ER due to worsening hematuria. He is s/p in office cystoscopy/fulguration by Dr. Teixeira in office on 05/29. Papillary tumor was 1cm in size, left posterior bladder wall. No further tumors appreciated at that time. Pt was evaluated in ER on 06/06 for hematuria but at that time was able to void spontaneously and discharged home. He returns today with his due to worsening urgency/frequency and persistent hematuria. He continues to take his xarelto and aspirin. Most information received from and daughter. VSS Hgb stable, Cr wnl CT reveals 1.6 cm nodular focus along the left posterolateral wall of the bladder, urothelial tumor or clot. NO hydronephrosis, no stones. Numerous bladder diverticula. Putnam placed in ED which was hand irrigated per , no clots appreciated. Draining uribe red urine at this time. Pt denies suprapubic or flank pain. Denies n/v/f/c. Pt is very hard of hearing but able to answer yes/no questions. Some concern for confusion related to dementia, per daughter this is not new or different. Allergies Allergy/AdvReac Type Severity Reaction Status Date / Time No Known Allergies Allergy Verified 06/11/19 06:18 Home Medications Home Medications Medication Instructions Recorded Confirmed Type metoprolol succinate 100 mg PO QPM 05/11/18 06/11/19 History rosuvastatin 40 mg PO QPM 05/11/18 06/11/19 History aspirin 81 mg tablet,delayed 81 mg PO QPM tab 05/20/19 06/11/19 History release rivaroxaban 15 mg PO QPM 06/06/19 06/11/19 History tamsulosin 0.4 mg PO QPM 06/06/19 06/11/19 History Patient History Medical History Hydrocele (Inactive) Nocturia (Inactive) Scalp laceration (Inactive) Surgical History S/P CABG (coronary artery bypass graft) (Acute 1994) S/P laparoscopic cholecystectomy Family History Brother Hx of CABG Diabetes Hypertension Father Emphysema, unspecified Mother Thrombophlebitis Social History Preferred Language: Hungarian Communication Ability: Effective Visual Impairment: No Limitations Hearing Ability: Normal Pocket And Pulley Machine Operator Required: No Beliefs That Will Affect Care: None marital status: Current Living Situation: Spouse current occupational status: retired 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 [employer] Other Information That Helps Us Care for You: No Feels Safe at Home: Yes Safety Concerns: Feels Safe At This Time Smoking Status: Light tobacco smoker Tobacco Type: cigars ; Cigarettes Per Day: 2 ; Do You Dip or Chew Tobacco: No ; Second Hand Exposure: No ; Tobacco Cessation Education Requested by Patient: No Hx Alcohol Use: Yes Hx Substance Use: No Physical Activity Frequency: Daily Seatbelt Use: always Review of Systems Review of Systems: All systems reviewed & are unremarkable except as noted in HPI & below Physical Exam Physical Exam: A&Ox3 RRR abd soft, nontender putnam draining uribe red no LE edema Results & Data Vital Signs (Past 12 Hours) Vital Signs Temp Pulse Pulse Resp BP BP Pulse Ox 06/11/19 10:36 64 20 166/94 H 96 06/11/19 08:40 67 20 181/81 H 98 06/11/19 07:20 67 20 164/85 H 97 06/11/19 06:03 36.4 C L 82 16 146/77 H 95 PG Care Time/CCT Total # of Minutes Spent Total Time Spent with Patient: Total time spent is greater than 50% in coordination of care (as documented) at patient's floor/unit and/or counseling patient: (1) Hematuria Hematuria type: gross Qualified Code(s): R31.0 - Gross hematuria
--- NOTE | 2019-06-11 12:31 | Emergency Department Note ---
Entered by Torres Trevino acting as a scribe for History of Present Illness General Chief complaint: Urinary Symptoms Stated complaint: BLOOD IN URINE SENT BY DR Gutierres Seen by Provider: 06/11/19 06:31 Source: patient History of Present Illness Provider complaint: Urinary Symptoms Onset (ago): week(s) 2 Location: abdomen Severity: similar to prior episodes Pain Consistency: + intermittent Relieved By: + none Associated symptoms: + denies other symptoms (Dysuria); no fever/chills and no nausea/vomiting The patient is an 88 year old male who presents to the Emergency Room with com plaints of intermittent hematuria that has been ongoing for the past 2 weeks. The patient reports that about 90% of the time he urinates there is either streaks of blood or clots. The patient denies any dysuria or back pain. The patient states that he has a history of similar symptoms and his last episode was about a year ago. The patient has a history of bladder cancer as well and had a recent procedure that is he unsure of the name of. The patient notes that he has been to the ED already for these symptoms and he was referred to urology but when he called Dr. Terry with urology, he was sent back to the ED. The patient also has a history of Afib for which he takes Xarelto daily and sometim es takes Aspirin. The patient denies any fevers, chills, nausea, and vomiting. The patient normally follows with Dr. Teixeira for urology. The patient denies smoking cigarettes but does smoke 1 cigar daily. Home Medications Home Medications Medication Instructions Recorded Confirmed Type metoprolol succinate 100 mg PO QPM 05/11/18 06/11/19 History rosuvastatin 40 mg PO QPM 05/11/18 06/11/19 History aspirin 81 mg tablet,delayed 81 mg PO QPM tab 05/20/19 06/11/19 History release rivaroxaban 15 mg PO QPM 06/06/19 06/11/19 History tamsulosin 0.4 mg PO QPM 06/06/19 06/11/19 History Allergies Allergy/AdvReac Type Severity Reaction Status Date / Time No Known Allergies Allergy Verified 06/11/19 06:18 Past Med/Surg History Medical History Hydrocele (Inactive) Nocturia (Inactive) Scalp laceration (Inactive) Surgical History S/P CABG (coronary artery bypass graft) (Acute 1994) S/P laparoscopic cholecystectomy Family History Brother Hx of CABG Diabetes Hypertension Father Emphysema, unspecified Mother Thrombophlebitis Social History Preferred Language: Lao Communication Ability: Effective Visual Impairment: No Limitations Hearing Ability: Normal Plumbing Installer Required: No Beliefs That Will Affect Care: None marital status: Current Living Situation: Spouse current occupational status: retired 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 and A total of 10 systems reviewed and were otherwise negative Physical Exam Vital Signs Vital Signs - 24 hr 06/11/19 06:03 06/11/19 07:20 06/11/19 08:40 Temperature 36.4 C L Temperature Source Oral Pulse Rate 82 Pulse Rate [Right Finger] 67 67 Respiratory Rate 16 20 20 Respiratory Effort / Characteristics Non-Labored Non-Labored Spontaneous Respiratory Depth Normal Normal Blood Pressure 146/77 H Blood Pressure [Right Arm] 164/85 H 181/81 H Blood Pressure Mean 100 Blood Pressure Mean [Right Arm] 111 114 Pulse Oximetry 95 97 98 Oxygen Delivery Method Room Air Room Air Room Air Sepsis Recent Fever Within 48 Hours No Sepsis New/Unexplained Change in Mental Status No Sepsis Action Taken by Nursing No Action Required GENERAL: Awake, alert, well-appearing, in no distress HENT: Normocephalic, atraumatic. Oropharynx unremarkable. EYES: Normal conjunctiva. Sclera non-icteric. NECK: Supple. No nuchal rigidity. FROM. No masses. RESPIRATORY: Clear to auscultation. No wheezes. No rales. Normal respiratory effort. CARDIAC: Normal rate. Normal rhythm. No murmurs. No rubs. Extremities warm and well perfused. Pulses equal. No JVD. GI: Soft, non-distended. No tenderness to palpation. No rebound or guarding. No masses. RECTAL: Deferred. MUSCULOSKELETAL: Atraumatic. Chest examination reveals no tenderness. The back is symmetrical on inspection without obvious abnormality. There is no CVA tenderness to palpation. No joint edema. LOWER EXTREMITIES: Calves are equal size bilaterally and non-tender. No edema. No discoloration. NEURO: Not oriented to person, place, or time. No sensory or motor deficits noted. Course Course 0634: Past medical records reviewed. The patient was evaluated in room A10, and a complete history and physical examination were performed. 0725: I spoke to Dr. Lluvia Sims about the patient's case. He recommending obtaining a CT scan and put a Taylor catheter in. 0732: I reevaluated the patient and updated him with work up plan. 0820: I spoke to Dr. Shook [facility] Hospitalist about the patient's case. He agreed to accept the patient for further evaluation. Consultations Consultation #1: I spoke to Dr. Lluvia Sims about the patient's case. He recommending obtaining a CT scan and put a Taylor catheter in. Time: 07:25 Consultation #2: I spoke to Dr. Boone Laura [facility] Hospitalist about the patient's case. He agreed to accept the patient for further evaluation. Time: 08:20 Administered Medications Discontinued Medications Ioversol (Optiray 320 100ml) 93 ml IV ONCE PRN PRN Reason: Interaction Checking Stop: 06/15/19 07:55 Last Admin: 06/11/19 07:56 Dose: 93 ml Documented by: [id number] Medical Decision Making Differential Diagnosis Differential Diagnosis includes but is not limited to dehydration, stroke, anemia, hypoglycemia, hyponatremia, hypernatremia, urinary tract infection, pneumonia, bronchitis, sepsis, gastroenteritis, additional abdominal pathology, metabolic abnormalities and infections. Medical Records Attestation: I reviewed the patient's medical records. Home Medications Current Medication List: was personally reviewed by me Laboratory Data Attestation: I reviewed the patient's lab results. Result diagrams: 06/11/19 06:17 06/11/19 07:00 Lab Results 06/11/19 06/11/19 06/11/19 Range/Units 06:17 06:17 06:17 WBC 8.42 (4.8-10.8) K/uL RBC 4.19 L (4.7-6.1) M/uL Hgb 12.9 L (14.0-18.0) g/dL Hct 39.0 L (42-52) % MCV 93.1 (80-100) fL MCH 30.8 (25-34) pg MCHC 33.1 (32-36) g/dL RDW Std Deviation 54.1 H (36.4-46.3) fL RDW Coeff of Jasmin 16.0 H (11.5-14.5) % Plt Count 171 (130-400) K/uL MPV 9.0 (7.4-10.4) fL Immature Gran % (Auto) 0.2 % Neut % (Auto) 62.3 % Lymph % (Auto) 22.6 % [place] % (Auto) 9.1 % Eos % (Auto) 5.7 % Baso % (Auto) 0.1 % Immature Gran # (Auto) 0.02 (0.00-0.02) K/uL Neut # (Auto) 5.24 (1.4-6.5) K/uL Lymph # (Auto) 1.90 (1.2-3.4) K/uL [place] # (Auto) 0.77 H (0.11-0.59) K/uL Eos # (Auto) 0.48 (0-0.5) K/uL Baso # (Auto) 0.01 (0-0.2) K/uL PT 13.1 H (9.0-12.0) Seconds INR 1.3 H (0.9-1.1) Sodium 138 (136-145) mmol/L Potassium (3.5-5.1) mmol/L Chloride 109 H (98-107) mmol/L Carbon Dioxide 26 (21-32) mmol/L Anion Gap 3.0 (3-11) BUN 23 H (7-18) mg/dl Creatinine 0.95 (0.6-1.4) mg/dl Est Cr Clr Drug Dosing 52.1 ml/min Est GFR ( Amer) 82.5 Est GFR (Non-Af Amer) 71.2 BUN/Creatinine Ratio 24.4 H (10-20) Glucose 95 (70-99) mg/dl Calcium 8.7 (8.5-10.1) mg/dl Magnesium (1.8-2.4) mg/dl Total Bilirubin 0.9 (0.2-1) mg/dl AST (15-37) U/L ALT 20 (12-78) U/L Alkaline Phosphatase 97 (45-117) U/L Total Protein 7.4 (6.4-8.2) gm/dl Albumin 3.1 L (3.4-5.0) gm/dl Globulin 4.3 H (2.5-4.0) gm/dl Albumin/Globulin Ratio 0.7 L (0.9-2) TSH 8.280 H (0.300-4.500) uIu/ml Free T4 0.97 (0.8-1.6) ng/dl Urine Color Urine Appearance (Clear) Urine pH (4.5-7.5) Ur Specific Goehner (1.000-1.030) Urine Protein (Negative) Urine Glucose (UA) (Negative) Urine Ketones (Negative) Urine Blood (Negative) Urine Nitrite (Negative) Urine Bilirubin (Negative) Urine Urobilinogen (Negative) Ur Leukocyte Esterase (Negative) Urine RBC (0-4) /hpf Urine WBC (0-5) /hpf Ur Epithelial Cells (0-5) /lpf Urine Bacteria (Negative) 06/11/19 06/11/19 Range/Units 07:00 07:00 WBC (4.8-10.8) K/uL RBC (4.7-6.1) M/uL Hgb (14.0-18.0) g/dL Hct (42-52) % MCV (80-100) fL MCH (25-34) pg MCHC (32-36) g/dL RDW Std Deviation (36.4-46.3) fL RDW Coeff of Jasmin (11.5-14.5) % Plt Count (130-400) K/uL MPV (7.4-10.4) fL Immature Gran % (Auto) % Neut % (Auto) % Lymph % (Auto) % [place] % (Auto) % Eos % (Auto) % Baso % (Auto) % Immature Gran # (Auto) (0.00-0.02) K/uL Neut # (Auto) (1.4-6.5) K/uL Lymph # (Auto) (1.2-3.4) K/uL [place] # (Auto) (0.11-0.59) K/uL Eos # (Auto) (0-0.5) K/uL Baso # (Auto) (0-0.2) K/uL PT (9.0-12.0) Seconds INR (0.9-1.1) Sodium (136-145) mmol/L Potassium 4.0 (3.5-5.1) mmol/L Chloride (98-107) mmol/L Carbon Dioxide (21-32) mmol/L Anion Gap (3-11) BUN (7-18) mg/dl Creatinine (0.6-1.4) mg/dl Est Cr Clr Drug Dosing ml/min Est GFR ( Amer) Est GFR (Non-Af Amer) BUN/Creatinine Ratio (10-20) Glucose (70-99) mg/dl Calcium (8.5-10.1) mg/dl Magnesium 1.9 (1.8-2.4) mg/dl Total Bilirubin (0.2-1) mg/dl AST 18 (15-37) U/L ALT (12-78) U/L Alkaline Phosphatase (45-117) U/L Total Protein (6.4-8.2) gm/dl Albumin (3.4-5.0) gm/dl Globulin (2.5-4.0) gm/dl Albumin/Globulin Ratio (0.9-2) TSH (0.300-4.500) uIu/ml Free T4 (0.8-1.6) ng/dl Urine Color Red Urine Appearance Turbid A (Clear) Urine pH 7.0 (4.5-7.5) Ur Specific Go[place]ner 1.015 (1.000-1.030) Urine Protein 2+ H (Negative) Urine Glucose (UA) Negative (Negative) Urine Ketones Negative (Negative) Urine Blood 3+ H (Negative) Urine Nitrite Negative (Negative) Urine Bilirubin Negative (Negative) Urine Urobilinogen Negative (Negative) Ur Leukocyte Esterase Negative (Negative) Urine RBC >30 H (0-4) /hpf Urine WBC >30 H (0-5) /hpf Ur Epithelial Cells 5-10 H (0-5) /lpf Urine Bacteria Negative (Negative) Imaging Data Radiologist's Impression: Radiology results as stated below per my review and the radiologist's interpretation: CT OF THE ABDOMEN AND PELVIS WITH CONTRAST CLINICAL HISTORY: Hematuria. COMPARISON STUDY: CT of abdomen and pelvis June 06, 2019. Renal ultrasound June 28, 2017. TECHNIQUE: Following IV administration of 93 mL of Optiray-320, axial images of the abdomen and pelvis were obtained from the lung bases to the proximal femurs. Images were reviewed in the axial, sagittal, and coronal planes. IV contrast was administered without complication. Automated exposure control was utilized for the study. A dose lowering technique was utilized adhering to the principles of ALARA. CT DOSE: 530.12 mGycm FINDINGS: Imaged portions of the lower chest demonstrate moderate cardiomegaly. There is traction bronchiectasis with honeycombing. 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 No pneumatosis, free air or portal venous gas is present. Lateral segment hepatic cyst is noted. There is no biliary ductal dilatation status post cholecystectomy. Heterogeneous enhancement of the liver may be related to heart dysfunction. The spleen, adrenal glands, kidneys and pancreas are unremarkable. There is extensive colonic diverticulosis without evidence for acute diverticulitis. There is no hydronephrosis. No urinary calculi are identified. Bladder wall thickening with trabeculation is noted. There are multiple bladder diverticula. There is a 1.6 cm nodular focus arising from the left posterior lateral aspect of the bladder. Apparent posterior bladder wall thickening is noted. Alternatively, this could reflect clot. Postoperative findings within the prostate are noted. The prostate is enlarged. There is no abdominal or pelvic lymphadenopathy. There is extensive aortoiliac atherosclerotic plaque with mild dilatation of the left common iliac artery. No suspicious osseous lesions are no jil. No evidence for a bowel obstruction. The appendix is normal. IMPRESSION: 1. 1.6 cm nodular focus along the left posterolateral wall of the bladder. This is suggestive of a urothelial tumor. Posterior bladder wall thickening may reflect additional urothelial tumor or clot. The findings could be correlated with cystoscopy. 2. No hydronephrosis. No urinary calculi. Numerous bladder diverticula related to chronic bladder outlet obstruction. 3. 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 ACT 112: Negative or not required by law. Electronically signed by: Humberto Malcolm M.D. 06/11/2019 8:14 AM Blood Pressure Blood Pressure Findings: Elevated blood pressure Blood Pressure Disposition: further management by hospitalist ILENE Goncalves This is an 88-year-old male who presents emergency department over concerns of hematuria. The patient has been up to the bathroom approximately 6 times in an hour over the night. The patient I am concerned is having difficulty caring for himself and therefore I got case management involved. A Taylor catheter was placed here in the emergency department. I did discuss the case with Dr. phillip and we made the decision to admit the patient as the patient appears to be struggling with this problem as an outpatient. Impression & Plan Hematuria, Altered mental status Discharge Plan Visit Data *Final* Discharge Date/Time: 06/11/19 10:37 Chief Complaint: Urinary Symptoms Stated Complaint: BLOOD IN URINE SENT BY ED Provider: Aram Mckeon Discharge Problem: Hematuria, Altered mental status Patient Disposition: Admitted As Inpatient Discharge Instructions Interventions: ED Discharge Assessment Last Done: 06/11/19 10:37 Discharge Problem: Hematuria Qualifiers: Hematuria type: unspecified type Qualified Code(s): R31.9 - Hematuria, unspecified Altered mental status Qualifiers: Altered mental status type: unspecified Qualified Code(s): R41.82 - Altered mental status, unspecified The scribe's documentation has been prepared under my direction and personally reviewed by me in its entirety. I confirm that the note above accurately reflects all work, treatment, procedures, and medical decision making performed by me.
[2019-06-11] MEDS: cefTRIAXone SODIUM 1,000 MG in DEXTROSE 5% 50 ML IV SCH (13:35)
--- NOTE | 2019-06-11 17:11 | History & Physical Report ---
Date of Service June 11, 2019 Assessment & Plan (1) Hematuria: Due to transitional cell bladder cancer. Also probably taking aspirin and Xarelto. - Taylor placed in the ED -> Returning pink urine - Hold anticoagulation and ASA - Urology follow - Conservative care at this time (2) Memory deficit: Partially admitted for memory issues. Per family, he is at his baseline. - CARPET RENOVATOR consult for cognitive testing - PT/OT (3) Permanent atrial fibrillation: Follows with Dr. Maguire. Presently rate-controlled. Last EKG in our system is from 2017. - EKG - Continue beta-ton - Hold anticoagulation as above (4) HTN (hypertension): BP presently 160/70. - Continue beta-ton & tamsulosin (5) CAD, multiple vessel: Follows with Dr. Maguire. 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 - Hold ASA - Continue beta-ton and statin (6) Hypothyroidism: Noted in the chart. TSH was 8.2 this admission, though not on any supplementation. Previous ones have been normal. - Given acute illness, will not start Synthroid as this can affect TFTs - Check again in 4-6 weeks as an outpatient. (7) DVT prophylaxis: SCDs - Holding chemoprophylaxis for bleeding History of Present Illness Primary Care Provider: Berny Powell MD 88yo M w/ hx of atrial fibrillation and papillary bladder cancer who presents with hematuria. Per the patient and , he had a cystoscopy with Dr. Teixeira on 05/29. He had some hematuria for several days which eventually cleared. He may have some level of dementia because he is unsure of his medications. He was told to hold his Xarelto after the procedure, but it appears he continued taking it. He and his are not 100% clear on which medications he is presently taking. After a few days of clear urine, he started to have hematuria again. His reports that he started to have more hematuria over the last week or so. Last night he was up to the restroom multiple times. Otherwise, he is in his normal state of health. Reports no fevers/chills, chest pain, shortness of breath, abdominal pain, nausea, or vomiting. Allergies Allergy/AdvReac Type Severity Reaction Status Date / Time No Known Allergies Allergy Verified 06/11/19 06:18 Home Medications Home Medications Medication Instructions Recorded Confirmed Type metoprolol succinate 100 mg PO QPM 05/11/18 06/11/19 History rosuvastatin 40 mg PO QPM 05/11/18 06/11/19 History aspirin 81 mg tablet,delayed 81 mg PO QPM tab 05/20/19 06/11/19 History release rivaroxaban 15 mg PO QPM 06/06/19 06/11/19 History tamsulosin 0.4 mg PO QPM 06/06/19 06/11/19 History Past Med/Surg History Medical History Hydrocele (Inactive) Nocturia (Inactive) Scalp laceration (Inactive) Surgical History S/P CABG (coronary artery bypass graft) (Acute 1994) S/P laparoscopic cholecystectomy Family History Brother Hx of CABG Diabetes Hypertension Father Emphysema, unspecified Mother Thrombophlebitis Social History Preferred Language: Estonian Communication Ability: Effective Visual Impairment: No Limitations Hearing Ability: Normal Head Irrigator Required: No Beliefs That Will Affect Care: None marital status: Current Living Situation: Spouse current occupational status: retired 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 [employer] Other Information That Helps Us Care for You: No Feels Safe at Home: Yes Safety Concerns: Feels Safe At This Time Smoking Status: Light tobacco smoker Tobacco Type: cigars ; Cigarettes Per Day: 2 ; Do You Dip or Chew Tobacco: No ; Second Hand Exposure: No ; Tobacco Cessation Education Requested by Patient: No Hx Alcohol Use: Yes Hx Substance Use: No Physical Activity Frequency: Daily Seatbelt Use: always Review of Systems Review of Systems: All systems reviewed & are unremarkable except as noted in HPI & below Physical Exam Constitutional: WD/WN, vitals as above Eyes: EOM intact bilaterally; no conjunctival abnormality ENMT: external ear and nose normal, oropharynx normal Neck: trachea midline, no thyromegaly normal visual inspection Respiratory: normal respiratory effort, lungs clear to auscultation no respiratory distress Cardiovascular: RRR, no murmur, no edema Gastrointestinal (Abdomen): Inspection/Auscultation: abdomen normal to inspection; abdomen not distended Musculoskeletal: no cyanosis or clubbing, extremities motor strength 5/5 Skin: no rashes, warm and dry Neurologic: moves all extremities and awake Psychiatric: Orientation: alert, oriented to person and cooperative Genitourinary: Hematuria Results & Data Vital Signs (Past 12 Hours) Vital Signs Temp Pulse Pulse Resp BP BP Pulse Ox 06/11/19 15:31 36.2 C L 73 16 160/71 H 98 06/11/19 10:50 36.2 C L 67 16 169/90 H 98 06/11/19 10:36 64 20 166/94 H 96 06/11/19 08:40 67 20 181/81 H 98 06/11/19 07:20 67 20 164/85 H 97 06/11/19 06:03 36.4 C L 82 16 146/77 H 95 Code Status & VTE Plan VTE Prophylaxis Plan VTE Prophylaxis will be ordered: Yes PG Care Time/CCT Total # of Minutes Spent Total Time Spent with Patient: Total time spent is greater than 50% in coordination of care (as documented) at patient's floor/unit and/or counseling patient: (1) Hematuria Hematuria type: unspecified type Qualified Code(s): R31.9 - Hematuria, unspecified
[2019-06-11] MEDS ORDERED: METOPROLOL SUCC 50MG EXT REL TAB PO SCH (21:00)
[2019-06-11] MEDS ORDERED: ROSUVASTATIN CALCIUM 20 MG TAB PO SCH (21:00)
[2019-06-11] MEDS ORDERED: TAMSULOSIN HCL 0.4 MG CAP PO SCH (21:00)
[2019-06-12 07:01] LABS: Hemoglobin 12.2 g/dL (14.0-18.0); Mean Corpuscular Hemoglobin 30.6 pg (25-34); Mean Corpuscular Hgb Conc 33.9 g/dL (32-36); Mean Corpuscular Volume 90.2 fL (80-100); Mean Platelet Volume 9.2 fL (7.4-10.4); Platelet Count 149 K/uL (130-400); RDW Standard Deviation 53.3 fL (36.4-46.3); Red Blood Count 3.99 M/uL (4.7-6.1); White Blood Count 10.47 K/uL (4.8-10.8)
[2019-06-12 07:32] LABS: Potassium 3.6 mmol/L (3.5-5.1)
[2019-06-12 07:33] LABS: Calcium 8.6 mg/dl (8.5-10.1); Creatinine Clr Calc Pharmacy 46.2 ml/min; Est GFR (African American) 71.5; Est GFR (Non-African American) 61.7; Magnesium 1.9 mg/dl (1.8-2.4); Phosphorus 3.4 mg/dl (2.5-4.9)
--- NOTE | 2019-06-12 12:06 | Urology Progress Note ---
Date of Service June 12, 2019 Assessment & Plan (1) Hematuria: 88yo M with gross hematuria s/p cysto/fulguration on anticoagulation, putnam placed. UC&S prelim negative for infection. Discussed plan of care with Dr. Teixeira, daughter and . Okay to d/c putnam catheter and d/c home from perspective. Plan to hold xarelto and aspirin until Sunday, if urine remains clear. We will arrange f/u as an outpatient in 3-4 weeks to be arranged by our office. Thank you for allowing us to participate in the acute care of Mr. Humphrey. Please reconsult us with additional questions, concerns or changes in patient status. Subjective 88yo M admitted with ongoing hematuria and urgency s/p cysto/fulguration on 05/[address] Teixeira and daughter at bedside. Pt had an uneventful night Hematuria has cleared, now draining clear yellow urine. No new issues/concerns. tolerating catheter well, denies suprapubic pain. Review of Systems Review of Systems: All systems reviewed & are unremarkable except as noted in HPI & below Physical Exam Physical Exam: A&Ox3 Resp rate reg abd soft, nontender putnam draining clear yellow Results & Data Vital Signs (Past 12 Hours) Vital Signs Temp Pulse Resp BP Pulse Ox 06/12/19 07:30 36.7 C 68 16 144/82 H 99 PG Care Time/CCT Total # of Minutes Spent Total Time Spent with Patient: Total time spent is greater than 50% in coordination of care (as documented) at patient's floor/unit and/or counseling patient: (1) Hematuria Hematuria type: unspecified type Qualified Code(s): R31.9 - Hematuria, unspecified
[2019-06-12] MEDS: cefTRIAXone SODIUM 1,000 MG in DEXTROSE 5% 50 ML IV SCH (12:33)
[2019-06-12 12:43] LABS: Folate (Folic Acid) 16.64 ng/ml (>5.38)
--- NOTE | 2019-06-12 17:47 | Discharge Summary ---
Date of Service June 12, 2019 Admission HPI Per Admitting Provider 88yo M w/ hx of atrial fibrillation and papillary bladder cancer who presents with hematuria. Per the patient and , he had a cystoscopy with Dr. Teixeira on 05/29. He had some hematuria for several days which eventually cleared. He may have some level of dementia because he is unsure of his medications. He was told to hold his Xarelto after the procedure, but it appears he continued taking it. He and his are not 100% clear on which medications he is presently taking. After a few days of clear urine, he started to have hematuria again. His reports that he started to have more hematuria over the last week or so. Last night he was up to the restroom multiple times. Otherwise, he is in his normal state of health. Reports no fevers/chills, chest pain, shortness of breath, abdominal pain, nausea, or vomiting. Principal Diagnosis Hematuria from Xarelto and bladder cancer Discharge Exam Constitutional WD/WN, vitals as above Eyes EOM intact bilaterally; no conjunctival abnormality ENMT external ear and nose normal, oropharynx normal Neck trachea midline, no thyromegaly normal visual inspection Respiratory normal respiratory effort, lungs clear to auscultation no respiratory distress Cardiovascular RRR, no murmur, no edema Gastrointestinal (Abdomen) Inspection/Auscultation: abdomen normal to inspection; abdomen not distended Musculoskeletal no cyanosis or clubbing, extremities motor strength 5/5 Skin no rashes, warm and dry Neurologic moves all extremities and awake Psychiatric Orientation: alert, oriented to person and cooperative Discharge Data Allergies Allergy/AdvReac Type Severity Reaction Status Date / Time No Known Allergies Allergy Verified 06/11/19 06:18 Consultations 06/11/19 08:33 Consult Urology Stat ED Decision to Admit Stat 06/11/19 11:00 Consult Urology Routine Ordered Studies 06/11/19 07:25 CT abd pelvis IV con only Stat Hospital Course (1) Hematuria: Due to transitional cell bladder cancer. Also probably taking aspirin and Xarelto. - Held anticoagulation and ASA - Urology follow - Conservative care at this time -> By 06/12, the hematuria had resolved. Urology recommended holding Xarelto and aspirin until Sunday. He will see his PCP and sole scraper. Urology follow up next week. (2) Memory deficit: Partially admitted for memory issues. Per family, he is at his baseline. B12/folate & TSH were normal. Thiamine level pending on discharge. - [employer] DEV[employer] consult indicated moderate-severe short-term memory loss and moderate medium-term memory loss. This affected other aspects of his mental status as at times he could not remember complex instructions or fully remember problem solving issues. - I discussed this at length with his daughter. She will help organize medications and work with Dr. Powell regarding Namenda and/or anti-depressant. (3) Permanent atrial fibrillation: Follows with Dr. Maguire. Presently rate-controlled. Last EKG in our system is from 2018. - Continue beta-ton - Hold anticoagulation as above (4) HTN (hypertension): BP was 145/80 to 160/70. - Continue beta-ton & tamsulosin (5) CAD, multiple vessel: Follows with Dr. Maguire. 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 - Hold ASA through Sunday - Continue beta-ton and statin (6) Hypothyroidism: Noted in the chart. TSH was 8.2 this admission, though not on any supplementation. Previous ones have been normal. - Given acute illness, will not start Synthroid as this can affect TFTs - Check again in 4-6 weeks as an outpatient. (7) DVT prophylaxis: SCDs - Holding chemoprophylaxis for bleeding Total Time Total Time Spent Total Time Spent (In Minutes): 35 Discharge Plan Discharge Items Patient Disposition: Home - Self-Care Reason For Visit: HEMATURIA Discharge Diagnosis: Hematuria Activity: Resume your previous activity Non-emergency contact: Primary Care Provider, Tactical Deception Plans Officer and Urologist Call non-emergency contact if: your symptoms worsen Follow-up/Referrals: Dusty Maguire MD [Physician] - 06/19/19 1:30 pm (An appointment was made on your behalf with your cardilogist office. Please call the office with any questions or concerns. ) Jj eTixeira MD [Physician] - (Please call the office on Sunday for an appointment.) Kelsea Rincon PA-C [Physician Mender Hand] - 06/16/19 10:00 am (An appointment has been made on your behalf with a provider in your PCP's office. Please call the office with any questions or concerns. ) Diet: Heart Healthy Addtl Attending Provider Instructions: You were admitted to the hospital with bleeding from your bladder at the site where Dr. Teixeira removed the bladder tumor. Luckily when we took you off your blood thinner, your bleeding stopped. The urology team saw you and felt that you could go home. Please stop taking the aspirin and Xarelto for at least through the weekend. Dr. Teixeira felt that if your urine remained clear, you could restart the Xarelto on Sunday. Please hold the aspirin until you see Dr. Maguire next week. Please call his office on Sunday to schedule an appointment. We have follow up appointments for you with Dr. Powell's PA in his office as well as Dr. Maguire. Please follow up with Dr. Powell's office for your memory issues. Pending Studies at Discharge: No Stand-Alone Forms: My [facility], Smoking Cessation Medications and DC Order Prescriptions: Continued tamsulosin 0.4 mg capsule 0.4 mg PO QPM RF: 0 metoprolol succinate 100 mg tablet extended release 24 hr 100 mg PO QPM RF: 0 rosuvastatin 40 mg tablet 40 mg PO QPM RF: 0 Discontinued aspirin [Adult Aspirin Regimen] 81 mg tablet,delayed release (DR/EC) 81 mg PO QPM RF: 0 rivaroxaban 15 mg tablet 15 mg PO QPM RF: 0 Discharge Orders: Discharge Order (Routine); Ordered 06/12/19 Ordered By: Rory Bernal/Other Patient Handouts: Hematuria Admission Data Admit Date/Time: 06/11/19 09:35 Attending Provider: Rory Shook Admit Provider: Rory Shook Primary Care Provider: Berny Powell Other Providers: Jj Teixeira ; Rory Shook Other Interventions: Discharge Summary Assessment (RN) Last Done: 06/12/19 15:56 DC Date/Time DO NOT enter until pt leaves facility: 06/12/19 17:07
== END 2019-06-12 17:07 | disposition home or self-care (01) | DRG 813 ==
LOC: ED 06:00 → 3W 09:35